=== PATIENT | male | born 1945 | race Caucasian/White ===

== ENCOUNTER 2021-04-30 12:56 | Inpatient (IN) | payer OTHER ==
[2021-04-30] MEDS ORDERED: ACETAMINOPHEN 1000 MG/100 ML VIAL (NON FORMULARY) IVPB ONE ×3 (13:37→21:20)
[2021-04-30 14:27] VITALS: BMI 27.9
[2021-04-30] MEDS ORDERED: ACETAMINOPHEN INJECTION 100 ML IVPB ONE (14:52)
[2021-04-30 15:30] LABS: VENOUS BASE EXCESS -1.4 mmol/L (-2-2); VENOUS O2 SATURATION 82.1 % (70-80); VENOUS PCO2 33.5 mmHg (38-52); VENOUS PH 7.433 (7.310-7.410)
[2021-04-30 15:43] LABS: BASO % 0.8 % (0-2.0); EOS % 0.1 % (0-4.5); HEMATOCRIT 44.8 % (35.4-49); HEMOGLOBIN 15.6 GM/dL (11.7-16.9); MCH 31.4 pg (25.7-33.7); MCHC 34.9 g/dl (32.0-35.9); MEAN PLT VOLUME 9.4 fl (7.5-11.1); MONO % 8.4 % (3.8-10.2); NEUT % 79.7 % (42.8-82.8); PLATELET COUNT 123 10^3/uL (134-434); RBC 4.98 M/mm3 (4.00-5.60); RDW 14.1 % (11.9-15.9); WHITE BLOOD COUNT 5.5 K/mm3 (4.0-10.0)
[2021-04-30 15:48] LABS: INR 1.13 (0.83-1.09); PROTHROMBIN TIME (PATIENT) 13.7 SEC (9.7-13.0)
[2021-04-30 15:50] LABS: CALCIUM 8.6 mg/dL (8.5-10.1)
[2021-04-30 15:51] LABS: ACTIVATED PTT 33.5 SECONDS (25.2-36.5); ALBUMIN 3.4 g/dl (3.4-5.0); BLOOD UREA NITROGEN 17.8 mg/dL (7-18)
[2021-04-30 15:52] LABS: MAGNESIUM 1.5 mg/dL (1.8-2.4)
[2021-04-30 15:54] LABS: CREATININE 0.8 mg/dL (0.55-1.3)
[2021-04-30 15:55] LABS: PHOSPHOROUS 3.9 mg/dL (2.5-4.9)
[2021-04-30 15:56] LABS: TOT PROT 6.5 g/dl (6.4-8.2)
[2021-04-30 16:10] LABS: LACTIC ACID 3.4 mmol/L (0.4-2.0)
[2021-04-30 16:13] LABS: PH,URINE 6.5 (5.0-8.0); URINE APPEARANCE CLEAR; URINE BILIRUBIN NEGATIVE (NEGATIVE); URINE COLOR DK YELLOW; URINE GLUCOSE (UA) 2+ (NEGATIVE); URINE KETONE 1+ (NEGATIVE); URINE LEUK ESTERASE NEGATIVE (NEGATIVE); URINE NITRITE NEGATIVE (NEGATIVE); URINE PROTEIN TRACE (NEGATIVE)
[2021-04-30] MEDS ORDERED: MAGNESIUM SULF 50% (8.12 MEQ/2 ML-1 GM VIAL) IVPB ONE (16:45)
[2021-04-30] MEDS ORDERED: SODIUM CHLORIDE 0.9% 500 ML INFUS.BAG IV ONE (16:45)
[2021-04-30] MEDS ORDERED: MAGNESIUM 1GM/D5W - 1 GM/100 ML IVPB IVPB ONE (17:24)
[2021-04-30] MEDS ORDERED: ACETAMINOPHEN 325 MG TABLET (FP) PO PRN (19:41)
[2021-04-30] MEDS ORDERED: POLYETHYLENE GLYCOL (HEALTHYLAX) 3350 17 GM PACKET PO PRN (19:41)
[2021-04-30 21:09] LABS: LACTIC ACID 9.6 mmol/L (0.4-2.0)
[2021-04-30] MEDS ORDERED: SODIUM CHLORIDE 1,000 ML IV STA (21:20)
[2021-04-30] MEDS ORDERED: VANCOMYCIN 1 GM in D5W (PRE-DOCKED) 1,000 MG/250 ML IVPB ONE (21:44)
[2021-04-30] MEDS ORDERED: PIPERACILLIN/TAZOB 4.5 GM 4.5 GM in DEXTROSE 5%-WATER 100 ML IVPB ONE (21:44)
[2021-04-30] MEDS ORDERED: LACTATED RINGERS SOLUTION 1000 ML INFUS.BAG IV ONE (21:45)
[2021-04-30] MEDS ORDERED: PIPERACILLIN/TAZOB 4.5 GM 4.5 GM/100 ML BAG IVPB ONE (23:33)
[2021-05-01] MEDS ORDERED: VANCOMYCIN 1 GRAM (PRE-DOCKED) 1,000 MG/250 ML BAG IVPB ONE (00:03)
[2021-05-01 01:49] LABS: LACTIC ACID 3.3 mmol/L (0.4-2.0)
[2021-05-01] MEDS ORDERED: IBUPROFEN 800 MG/8 ML IJ IVPB ONE ×2 (01:54→01:56)
[2021-05-01] MEDS ORDERED: ACETAMINOPHEN 1000 MG/100 ML VIAL (NON FORMULARY) IVPB ONE (01:56)
[2021-05-01] MEDS ORDERED: ACETAMINOPHEN INJECTION 100 ML IVPB ONE (02:09)
[2021-05-01] MEDS ORDERED: MAGNESIUM SULFATE IN WATER 2 GM/50 ML IVPB IVPB ONE ×3 (03:05→15:42)
[2021-05-01] MEDS: MAGNESIUM SULFATE IN WATER 2 GM/50 ML IVPB IVPB ONE ×2 (03:25→05:11)
[2021-05-01 04:19] LABS: HEMATOCRIT 39.1 % (35.4-49); MCHC 34.9 g/dl (32.0-35.9)
[2021-05-01 04:21] LABS: INR 1.23 (0.83-1.09); PROTHROMBIN TIME (PATIENT) 14.9 SEC (9.7-13.0)
[2021-05-01 04:24] LABS: HEMOGLOBIN 13.7 GM/dL (11.7-16.9); MCH 31.4 pg (25.7-33.7); MEAN CELL VOLUME 90.1 fl (80-96); MEAN PLT VOLUME 8.8 fl (7.5-11.1); PLATELET COUNT 94 10^3/uL (134-434); RBC 4.34 M/mm3 (4.00-5.60); RDW 13.7 % (11.9-15.9); WHITE BLOOD COUNT 4.2 K/mm3 (4.0-10.0)
[2021-05-01 04:30] LABS: CALCIUM 7.4 mg/dL (8.5-10.1)
[2021-05-01 04:31] LABS: ALBUMIN 2.8 g/dl (3.4-5.0); BLOOD UREA NITROGEN 15.7 mg/dL (7-18); MAGNESIUM 1.4 mg/dL (1.8-2.4)
[2021-05-01 04:34] LABS: CREATININE 0.8 mg/dL (0.55-1.3)
[2021-05-01 04:36] LABS: BILIRUBIN,TOTAL 1.2 mg/dL (0.2-1); TOT PROT 5.4 g/dl (6.4-8.2)
[2021-05-01 05:11] LABS: LACTIC ACID 2.7 mmol/L (0.4-2.0)
[2021-05-01] MEDS ORDERED: PIPERACILLIN/TAZOB 3.375 GM 3.375 GM/50 ML BAG IVPB ONE ×3 (05:13→15:42)
[2021-05-01] MEDS: PIPERACILLIN/TAZOB 3.375 GM 3.375 GM in DEXTROSE 5%-WATER - 50 ML IVPB SCH ×4 (05:21→21:30)
[2021-05-01] MEDS ORDERED: MAGNESIUM 1GM/D5W - 1 GM/100 ML IVPB IVPB ONE (05:50)
[2021-05-01] MEDS ORDERED: KCL 10 MEQ IVPB 10 MEQ/100 ML INFUS.BAG IVPB ONE (06:45)
[2021-05-01 07:52] LABS: ANISOCYTOSIS 0; HELMET CELLS 0; HOWELL-JOLLY BODIES 0; MACROCYTOSIS 0; OVALOCYTE 0; PLATELET ESTIMATE DECREASED; ROULEAU 0; SICKELED CELLS 0; TARGET CELLS 0; TEAR DROP CELLS 0; TOXIC GRANULATION 0
[2021-05-01] MEDS: KCL 10 MEQ IVPB 10 MEQ/100 ML INFUS.BAG IVPB SCH ×2 (10:00→10:08)
[2021-05-01] MEDS ORDERED: INSULIN SLIDING SCALE (NOVOLOG) 1 VIAL SQ ONE (10:10)
[2021-05-01] MEDS: INSULIN SLIDING SCALE (NOVOLOG) 1 VIAL SQ SCH ×3 (10:13→22:35)
[2021-05-01] MEDS ORDERED: ENOXAPARIN NA (PORCINE) 40 MG/0.4 ML DISP.SYRIN SQ ONE (10:42)
[2021-05-01] MEDS ORDERED: DIVALPROEX SODIUM 500 MG TABLET E.C. ONE (10:42)
[2021-05-01] MEDS ORDERED: ASPIRIN 81 MG CHEWABLE TABLETS ONE (10:42)
[2021-05-01] MEDS: ENOXAPARIN NA (PORCINE) 40 MG/0.4 ML DISP.SYRIN SQ SCH (10:46)
[2021-05-01] MEDS: DIVALPROEX NA *ER* EXTEND REL 500 MG TABLET.SA (FP) PO SCH ×2 (10:46→22:00)
[2021-05-01] MEDS: ASPIRIN 81 MG CHEWABLE TABLETS PO SCH (10:46)
[2021-05-01] MEDS ORDERED: VANCOMYCIN/WATER BAGS 1,250 MG/250 ML BAG IVPB SCH (11:00)
[2021-05-01] MEDS ORDERED: VANCOMYCIN/WATER 1,250 MG/250 ML BAG IVPB SCH (11:00)
[2021-05-01] MEDS ORDERED: MAGNESIUM SULF 50% (8.12 MEQ/2 ML-1 GM VIAL) IVPB ONE (14:56)
[2021-05-01] MEDS ORDERED: PT OWN MED DRAWER 7, Y5N ONE (21:03)
[2021-05-01] MEDS ORDERED: PIPERACILLIN/TAZOBACTAM 3.375 GM VIAL IVPB ONE (21:04)
[2021-05-01] MEDS ORDERED: DEXTROSE 5%-WATER - 50 ML IVPB ONE (21:04)
[2021-05-01] MEDS ORDERED: ATORVASTATIN CA 40 MG TABLET (FP) PO SCH (22:00)
[2021-05-01] MEDS: CROMOLYN SODIUM 4% OPHTH DROPS 10 ML BOTTLE OU SCH (22:00)
[2021-05-01] MEDS: risperiDONE 0.5 MG TABLET PO SCH (22:35)
[2021-05-01] MEDS: DONEPEZIL HCL 5 MG TABLET (FP) PO SCH (22:40)
[2021-05-02] MEDS: CROMOLYN SODIUM 4% OPHTH DROPS 10 ML BOTTLE OU SCH ×2 (01:38→21:38)
[2021-05-02] MEDS ORDERED: DEXTROSE 5%-WATER - 50 ML IVPB ONE ×3 (01:39→15:35)
[2021-05-02] MEDS ORDERED: PIPERACILLIN/TAZOBACTAM 3.375 GM VIAL IVPB ONE ×4 (01:39→20:31)
[2021-05-02] MEDS: PIPERACILLIN/TAZOB 3.375 GM 3.375 GM in DEXTROSE 5%-WATER - 50 ML IVPB SCH ×4 (02:16→21:37)
[2021-05-02] MEDS ORDERED: PT OWN MED DRAWER 7, Y5N ONE ×3 (02:38→20:30)
[2021-05-02] MEDS ORDERED: guaiFENesin/D-METHORPHAN HB 10 ML UNIT-DOSE CUPS PO PRN (06:02)
[2021-05-02] MEDS: INSULIN SLIDING SCALE (NOVOLOG) 1 VIAL SQ SCH ×5 (06:44→21:36)
[2021-05-02 07:23] LABS: BASO % 1.1 % (0-2.0); EOS % 2.4 % (0-4.5); HEMATOCRIT 37.4 % (35.4-49); HEMOGLOBIN 13.3 GM/dL (11.7-16.9); LYMPH % 28.6 % (8-40); MCH 31.8 pg (25.7-33.7); MCHC 35.5 g/dl (32.0-35.9); MEAN CELL VOLUME 89.5 fl (80-96); MEAN PLT VOLUME 9.5 fl (7.5-11.1); MONO % 23.5 % (3.8-10.2); NEUT % 44.4 % (42.8-82.8); PLATELET COUNT 103 10^3/uL (134-434); RBC 4.18 M/mm3 (4.00-5.60); RDW 14.1 % (11.9-15.9)
[2021-05-02 07:46] LABS: ALBUMIN 2.7 g/dl (3.4-5.0); MAGNESIUM 1.9 mg/dL (1.8-2.4)
[2021-05-02 07:49] LABS: BLOOD UREA NITROGEN 10.3 mg/dL (7-18); CALCIUM 7.3 mg/dL (8.5-10.1); CREATININE 0.6 mg/dL (0.55-1.3)
[2021-05-02 07:50] LABS: TOT PROT 5.4 g/dl (6.4-8.2)
[2021-05-02 07:52] LABS: BILIRUBIN,TOTAL 1.1 mg/dL (0.2-1)
[2021-05-02 10:10] LABS: ANISOCYTOSIS 0; HELMET CELLS 0; HOWELL-JOLLY BODIES 0; MACROCYTOSIS 0; OVALOCYTE 0; PLATELET ESTIMATE DECREASED; ROULEAU 0; SICKELED CELLS 0; TARGET CELLS 0; TEAR DROP CELLS 0; TOXIC GRANULATION 0
[2021-05-02] MEDS ORDERED: POTASSIUM CHLORIDE TABS 10 MEQ TABLET.ER (FP) PO ONE (10:15)
[2021-05-02] MEDS: ASPIRIN 81 MG CHEWABLE TABLETS PO SCH (10:49)
[2021-05-02] MEDS: ENOXAPARIN NA (PORCINE) 40 MG/0.4 ML DISP.SYRIN SQ SCH (10:49)
[2021-05-02] MEDS: DIVALPROEX NA *ER* EXTEND REL 500 MG TABLET.SA (FP) PO SCH ×2 (10:51→21:38)
[2021-05-02 11:46] LABS: LACTIC ACID 3.2 mmol/L (0.4-2.0)
[2021-05-02] MEDS: DONEPEZIL HCL 5 MG TABLET (FP) PO SCH (21:38)
[2021-05-02] MEDS: risperiDONE 0.5 MG TABLET PO SCH (21:38)
[2021-05-03] MEDS ORDERED: PIPERACILLIN/TAZOBACTAM 3.375 GM VIAL IVPB ONE ×3 (01:32→14:23)
[2021-05-03] MEDS ORDERED: DEXTROSE 5%-WATER - 50 ML IVPB ONE ×3 (01:32→14:24)
[2021-05-03] MEDS: PIPERACILLIN/TAZOB 3.375 GM 3.375 GM in DEXTROSE 5%-WATER - 50 ML IVPB SCH ×3 (03:11→14:53)
[2021-05-03 07:06] LABS: BASO % 0.7 % (0-2.0); EOS % 3.8 % (0-4.5); HEMATOCRIT 38.3 % (35.4-49); HEMOGLOBIN 13.6 GM/dL (11.7-16.9); MCH 31.9 pg (25.7-33.7); MCHC 35.4 g/dl (32.0-35.9); MEAN CELL VOLUME 90.3 fl (80-96); MEAN PLT VOLUME 9.5 fl (7.5-11.1); MONO % 16.9 % (3.8-10.2); NEUT % 38.6 % (42.8-82.8); PLATELET COUNT 122 10^3/uL (134-434); RBC 4.24 M/mm3 (4.00-5.60); RDW 13.9 % (11.9-15.9); WHITE BLOOD COUNT 3.9 K/mm3 (4.0-10.0)
[2021-05-03 07:20] LABS: CALCIUM 7.9 mg/dL (8.5-10.1)
[2021-05-03 07:21] LABS: ALBUMIN 2.7 g/dl (3.4-5.0); BLOOD UREA NITROGEN 9.2 mg/dL (7-18)
[2021-05-03 07:24] LABS: CREATININE 0.7 mg/dL (0.55-1.3)
[2021-05-03 07:25] LABS: BILIRUBIN,TOTAL 0.9 mg/dL (0.2-1)
[2021-05-03] MEDS ORDERED: POTASSIUM CHLORIDE TABS 20 MEQ TABLET.ER (FP) PO ONE (07:26)
[2021-05-03 07:27] LABS: TOT PROT 5.5 g/dl (6.4-8.2)
[2021-05-03] MEDS: INSULIN SLIDING SCALE (NOVOLOG) 1 VIAL SQ SCH ×4 (09:25→21:14)
[2021-05-03] MEDS: DIVALPROEX NA *ER* EXTEND REL 500 MG TABLET.SA (FP) PO SCH ×2 (09:26→21:13)
[2021-05-03] MEDS: ASPIRIN 81 MG CHEWABLE TABLETS PO SCH (09:26)
[2021-05-03] MEDS: ENOXAPARIN NA (PORCINE) 40 MG/0.4 ML DISP.SYRIN SQ SCH (09:27)
[2021-05-03 10:31] LABS: LACTIC ACID 2.2 mmol/L (0.4-2.0)
[2021-05-03] MEDS: DONEPEZIL HCL 5 MG TABLET (FP) PO SCH (21:13)
[2021-05-03] MEDS: risperiDONE 0.5 MG TABLET PO SCH (21:13)
[2021-05-03] MEDS ORDERED: CROMOLYN SODIUM 4% OPHTH DROPS 10 ML BOTTLE OU SCH (22:00)
[2021-05-04] MEDS: INSULIN SLIDING SCALE (NOVOLOG) 1 VIAL SQ SCH ×4 (06:02→21:53)
[2021-05-04] MEDS ORDERED: PT OWN MED DRAWER 7, Y5N ONE (09:03)
[2021-05-04] MEDS: ASPIRIN 81 MG CHEWABLE TABLETS PO SCH (09:39)
[2021-05-04] MEDS: ENOXAPARIN NA (PORCINE) 40 MG/0.4 ML DISP.SYRIN SQ SCH (09:39)
[2021-05-04] MEDS: DIVALPROEX NA *ER* EXTEND REL 500 MG TABLET.SA (FP) PO SCH ×2 (09:39→21:53)
[2021-05-04 11:08] LABS: BASO % 0.6 % (0-2.0); EOS % 2.9 % (0-4.5); HEMOGLOBIN 13.8 GM/dL (11.7-16.9); LYMPH % 36.7 % (8-40); MCH 31.8 pg (25.7-33.7); MCHC 35.3 g/dl (32.0-35.9); MEAN CELL VOLUME 90.1 fl (80-96); MEAN PLT VOLUME 8.9 fl (7.5-11.1); NEUT % 47.8 % (42.8-82.8); PLATELET COUNT 147 10^3/uL (134-434); RBC 4.33 M/mm3 (4.00-5.60); WHITE BLOOD COUNT 5.2 K/mm3 (4.0-10.0)
[2021-05-04 11:29] LABS: CALCIUM 8.5 mg/dL (8.5-10.1)
[2021-05-04 11:30] LABS: BLOOD UREA NITROGEN 11.6 mg/dL (7-18); MAGNESIUM 1.8 mg/dL (1.8-2.4)
[2021-05-04 11:33] LABS: CREATININE 0.7 mg/dL (0.55-1.3)
[2021-05-04 11:38] LABS: LACTIC ACID 2.1 mmol/L (0.4-2.0)
[2021-05-04] MEDS ORDERED: POTASSIUM CHLORIDE TABS 10 MEQ TABLET.ER (FP) PO ONE (15:10)
[2021-05-04] MEDS: risperiDONE 0.5 MG TABLET PO SCH (21:52)
[2021-05-04] MEDS: DONEPEZIL HCL 5 MG TABLET (FP) PO SCH (21:52)
[2021-05-05] MEDS: INSULIN SLIDING SCALE (NOVOLOG) 1 VIAL SQ SCH ×2 (06:00→11:43)
[2021-05-05] MEDS ORDERED: PT OWN MED DRAWER 7, Y5N ONE (08:20)
[2021-05-05] MEDS: ASPIRIN 81 MG CHEWABLE TABLETS PO SCH (09:02)
[2021-05-05] MEDS: ENOXAPARIN NA (PORCINE) 40 MG/0.4 ML DISP.SYRIN SQ SCH (09:03)
[2021-05-05] MEDS: DIVALPROEX NA *ER* EXTEND REL 500 MG TABLET.SA (FP) PO SCH (09:03)
[2021-05-05 09:11] VITALS: BP 118/67; PULSE 71; TEMP 98.1
[2021-05-05] MEDS ORDERED: POTASSIUM CHLORIDE TABS 10 MEQ TABLET.ER (FP) PO SCH (10:00)
== END 2021-05-05 13:22 | DRG 864 ==
LOC: JER 12:56 → JERBED 17:22 → J4W 05-01 16:43
PROVIDERS: ADMIT Internal Medicine; ATTEND Family Medicine
DX: R50.83 Postvaccination fever (principal); E87.2 Acidosis; T50.B95A Adverse effect of other viral vaccines, initial encounter; I25.10 Atherosclerotic heart disease of native coronary artery without angina pectoris; E11.9 Type 2 diabetes mellitus without complications; E78.5 Hyperlipidemia, unspecified; F03.90 Unspecified dementia, unspecified severity, without behavioral disturbance, psychotic disturbance, mood disturbance, and anxiety; F39 Unspecified mood [affective] disorder; Z79.84 Long term (current) use of oral hypoglycemic drugs; Z79.4 Long term (current) use of insulin; R53.1 Weakness; E83.42 Hypomagnesemia; R94.5 Abnormal results of liver function studies
CPT/HCPCS: 36415; 70450-TC; 71045-TC-FY; 71250-TC; 74177-TC; 76705-TC; 80048; 80053; 81003; 82550; 82553; 82803; 82962; 83605; 83735; 84100; 84484; 85025; 85610; 85730; 87040; 87086; 87804; 87807; 87899; 93005; 93010; 99285-25; C9803; J0131; Q9967; U0003; U0005

== ENCOUNTER 2022-04-07 20:02 | Observation (INO) | payer OTHER ==
[2022-04-07] MEDS ORDERED: SODIUM CHLORIDE 1,000 ML IV SCH ×2 (20:15→21:30)
[2022-04-07 22:34] LABS: BASO % 1.1 % (0-2.0); EOS % 1.3 % (0-4.5); HEMATOCRIT 42.9 % (35.4-49); LYMPH % 34.7 % (8-40); MCH 31.7 pg (25.7-33.7); MCHC 34.9 g/dl (32.0-35.9); MEAN CELL VOLUME 90.8 fl (80-96); MEAN PLT VOLUME 9.5 fl (7.5-11.1); MONO % 12.6 % (3.8-10.2); NEUT % 50.3 % (42.8-82.8); PLATELET COUNT 148 10^3/uL (134-434); RBC 4.72 M/mm3 (4.00-5.60); RDW 13.3 % (11.9-15.9); WHITE BLOOD COUNT 6.6 K/mm3 (4.0-10.0)
[2022-04-07 22:41] LABS: INR 1.07 (0.83-1.09); PROTHROMBIN TIME (PATIENT) 12.3 SEC (9.7-13.0)
[2022-04-07 22:44] LABS: ACTIVATED PTT 33.9 SECONDS (25.2-36.5)
[2022-04-07 22:54] LABS: CALCIUM 9.3 mg/dL (8.5-10.1)
[2022-04-07 22:56] LABS: ALBUMIN 3.5 g/dl (3.4-5.0)
[2022-04-07 22:59] LABS: CREATININE 0.7 mg/dL (0.55-1.3)
[2022-04-07 23:00] LABS: TOT PROT 6.5 g/dl (6.4-8.2)
[2022-04-07 23:01] LABS: BILIRUBIN,TOTAL 0.6 mg/dL (0.2-1)
[2022-04-08] MEDS ORDERED: ACETAMINOPHEN 325 MG TABLET (FP) PO PRN (03:21)
[2022-04-08] MEDS ORDERED: POLYETHYLENE GLYCOL (HEALTHYLAX) 3350 17 GM PACKET PO PRN (04:59)
[2022-04-08] MEDS ORDERED: CARBIDOPA/LEVODOPA 25/100 TABLET (FP) ONE (06:25)
[2022-04-08] MEDS: ARTIFICIAL TEARS (POLYVINYL ALCOHOL) OPTH DROPS OU SCH ×3 (06:25→23:38)
[2022-04-08] MEDS: INSULIN SLIDING SCALE (NOVOLOG) 1 VIAL SQ SCH ×4 (06:34→23:36)
[2022-04-08 06:58] LABS: CALCIUM 8.7 mg/dL (8.5-10.1); HEMATOCRIT 42.1 % (35.4-49); HEMOGLOBIN 14.4 GM/dL (11.7-16.9); MCH 30.9 pg (25.7-33.7); MCHC 34.1 g/dl (32.0-35.9); MEAN CELL VOLUME 90.5 fl (80-96); MEAN PLT VOLUME 9.8 fl (7.5-11.1); PLATELET COUNT 150 10^3/uL (134-434); RBC 4.65 M/mm3 (4.00-5.60); RDW 13.3 % (11.9-15.9); WHITE BLOOD COUNT 6.9 K/mm3 (4.0-10.0)
[2022-04-08 06:59] LABS: BLOOD UREA NITROGEN 16.2 mg/dL (7-18)
[2022-04-08 07:02] LABS: CREATININE 0.6 mg/dL (0.55-1.3)
[2022-04-08 08:13] VITALS: BMI 22.7
[2022-04-08] MEDS: ASPIRIN COATED 81 MG TABLET.EC PO SCH (09:15)
[2022-04-08] MEDS: ENOXAPARIN NA (PORCINE) 40 MG/0.4 ML DISP.SYRIN SQ SCH (09:15)
[2022-04-08] MEDS: DIVALPROEX NA *ER* EXTEND REL 500 MG TABLET.SA (FP) PO SCH ×2 (11:27→23:35)
[2022-04-08 11:59] LABS: ANISOCYTOSIS 0; HELMET CELLS 0; HOWELL-JOLLY BODIES 0; MACROCYTOSIS 0; OVALOCYTE 0; ROULEAU 0; SICKELED CELLS 0; TARGET CELLS 0; TEAR DROP CELLS 0; TOXIC GRANULATION 0
[2022-04-08] MEDS: ZINC OXIDE 20% TOPICAL OINTMENT 30 GM TUBE TP SCH ×2 (12:33→23:37)
[2022-04-08] MEDS: CROMOLYN SODIUM 4% OPHTH DROPS 10 ML BOTTLE OU SCH (23:30)
[2022-04-08] MEDS: risperiDONE 0.5 MG TABLET PO SCH (23:35)
[2022-04-08] MEDS: ATORVASTATIN CA 40 MG TABLET (FP) PO SCH (23:36)
[2022-04-09] MEDS: ARTIFICIAL TEARS (POLYVINYL ALCOHOL) OPTH DROPS OU SCH ×3 (06:33→21:03)
[2022-04-09] MEDS: INSULIN SLIDING SCALE (NOVOLOG) 1 VIAL SQ SCH ×4 (06:37→21:00)
[2022-04-09] MEDS: DIVALPROEX NA *ER* EXTEND REL 500 MG TABLET.SA (FP) PO SCH ×2 (09:17→21:03)
[2022-04-09] MEDS: ASPIRIN COATED 81 MG TABLET.EC PO SCH (09:17)
[2022-04-09] MEDS: ENOXAPARIN NA (PORCINE) 40 MG/0.4 ML DISP.SYRIN SQ SCH ×2 (09:18→09:31)
[2022-04-09] MEDS: ZINC OXIDE 20% TOPICAL OINTMENT 30 GM TUBE TP SCH ×2 (09:20→21:04)
[2022-04-09] MEDS ORDERED: ERYTHROMYCIN 0.5% OPHTHALMIC OINTMENT 3.5 GM TUBE OD SCH (10:00)
[2022-04-09 10:31] LABS: BASO % 0.5 % (0-2.0); HEMATOCRIT 42.4 % (35.4-49); HEMOGLOBIN 14.5 GM/dL (11.7-16.9); LYMPH % 34.5 % (8-40); MCH 31.3 pg (25.7-33.7); MCHC 34.2 g/dl (32.0-35.9); MEAN CELL VOLUME 91.5 fl (80-96); MEAN PLT VOLUME 10.1 fl (7.5-11.1); MONO % 11.1 % (3.8-10.2); NEUT % 52.9 % (42.8-82.8); PLATELET COUNT 139 10^3/uL (134-434); RBC 4.63 M/mm3 (4.00-5.60); RDW 13.3 % (11.9-15.9); WHITE BLOOD COUNT 5.8 K/mm3 (4.0-10.0)
[2022-04-09 10:38] LABS: CALCIUM 8.3 mg/dL (8.5-10.1)
[2022-04-09 10:39] LABS: ALBUMIN 3.3 g/dl (3.4-5.0); BLOOD UREA NITROGEN 20.4 mg/dL (7-18)
[2022-04-09 10:42] LABS: BILIRUBIN,TOTAL 0.6 mg/dL (0.2-1); CREATININE 0.7 mg/dL (0.55-1.3)
[2022-04-09] MEDS: ERYTHROMYCIN 0.5% OPHTHALMIC OINTMENT 3.5 GM TUBE OS SCH (11:30)
[2022-04-09] MEDS: risperiDONE 0.5 MG TABLET PO SCH (21:03)
[2022-04-09] MEDS: ATORVASTATIN CA 40 MG TABLET (FP) PO SCH (21:03)
[2022-04-09] MEDS ORDERED: NAPHAZOLINE/PHENIRAMINE OPHTHALMIC 15 ML BOTTLE OU SCH (22:49)
[2022-04-09] MEDS: CROMOLYN SODIUM 4% OPHTH DROPS 10 ML BOTTLE OU SCH (23:01)
[2022-04-10] MEDS: ARTIFICIAL TEARS (POLYVINYL ALCOHOL) OPTH DROPS OU SCH (05:00)
[2022-04-10] MEDS: INSULIN SLIDING SCALE (NOVOLOG) 1 VIAL SQ SCH ×2 (06:04→11:57)
[2022-04-10] MEDS: ENOXAPARIN NA (PORCINE) 40 MG/0.4 ML DISP.SYRIN SQ SCH (09:28)
[2022-04-10] MEDS: ERYTHROMYCIN 0.5% OPHTHALMIC OINTMENT 3.5 GM TUBE OS SCH (09:28)
[2022-04-10] MEDS: ASPIRIN COATED 81 MG TABLET.EC PO SCH (09:28)
[2022-04-10] MEDS: ZINC OXIDE 20% TOPICAL OINTMENT 30 GM TUBE TP SCH (09:29)
[2022-04-10] MEDS: DIVALPROEX NA *ER* EXTEND REL 500 MG TABLET.SA (FP) PO SCH (09:31)
[2022-04-10 12:21] VITALS: BP 100/61; PULSE 73; TEMP 98.2
[2022-04-10 12:22] VITALS: RESP 18
== END 2022-04-10 02:30 ==
LOC: JER 20:02 → JERBED 23:30 → J5S 04-08 07:40
PROVIDERS: ADMIT Internal Medicine; ATTEND Family Medicine
PROC: 3E023GC Introduction of Other Therapeutic Substance into Muscle, Percutaneous Approach (ICD-10-PCS; principal; 2022-04-07)
PROC: 3E013VG Introduction of Insulin into Subcutaneous Tissue, Percutaneous Approach (ICD-10-PCS; 2022-04-07)
DX: H49.02 Third [oculomotor] nerve palsy, left eye (principal); F31.9 Bipolar disorder, unspecified; I25.10 Atherosclerotic heart disease of native coronary artery without angina pectoris; E11.40 Type 2 diabetes mellitus with diabetic neuropathy, unspecified; E78.5 Hyperlipidemia, unspecified; F39 Unspecified mood [affective] disorder; F03.90 Unspecified dementia, unspecified severity, without behavioral disturbance, psychotic disturbance, mood disturbance, and anxiety; I72.9 Aneurysm of unspecified site
CPT/HCPCS: 36415; 70450-TC; 70496-TC; 71250-TC; 80048; 80053; 82962; 83036; 84443; 85025; 85027; 85610; 85730; 86618; 86850; 86900; 86901; 93005; 93010; 96372; 99285-25; C9803-CS; G0378; Q9967; U0003; U0005

== ENCOUNTER 2022-12-12 12:57 | Inpatient (IN) | payer OTHER ==
[2022-12-12] MEDS ORDERED: PIPERACILLIN/TAZOB 4.5 GM 4.5 GM in DEXTROSE 5%-WATER 100 ML IVPB ONE (13:32)
[2022-12-12] MEDS ORDERED: SODIUM CHLORIDE 0.9% 1000 ML INFUS.BAG IV ONE ×2 (13:32→15:13)
[2022-12-12] MEDS ORDERED: ACETAMINOPHEN 1000 MG/100 ML BAG IVPB ONE ×3 (13:32→21:20)
[2022-12-12] MEDS ORDERED: VANCOMYCIN 1 GM in D5W (PRE-DOCKED) 1,000 MG/250 ML (RESTRICTED TO ID ONLY IVPB ONE (13:33)
[2022-12-12] MEDS ORDERED: VANCOMYCIN/WATER FOR INJ (PEG) 1,000 MG/200 ML BAG IVPB ONE (13:55)
[2022-12-12] MEDS ORDERED: PIPERACILLIN/TAZOB 4.5 GM 4.5 GM/100 ML BAG IVPB ONE (13:55)
[2022-12-12] MEDS ORDERED: ACETAMINOPHEN INJECTION 100 ML IVPB ONE ×2 (13:55→19:32)
[2022-12-12 14:29] LABS: BASO % 0.4 % (0-2.0); HEMATOCRIT 42.7 % (35.4-49); HEMOGLOBIN 14.9 GM/dL (11.7-16.9); LYMPH % 5.6 % (8-40); MCH 31.4 pg (25.7-33.7); MCHC 34.9 g/dl (32.0-35.9); MEAN CELL VOLUME 90.2 fl (80-96); MEAN PLT VOLUME 10.1 fl (7.5-11.1); PLATELET COUNT 122 10^3/uL (134-434); RBC 4.73 M/mm3 (4.00-5.60); RDW 13.9 % (11.9-15.9); WHITE BLOOD COUNT 10.2 K/mm3 (4.0-10.0)
[2022-12-12 14:30] LABS: VENOUS BASE EXCESS -4.6 mmol/L (-2-2); VENOUS O2 SATURATION 89.3 % (70-80); VENOUS PCO2 30.7 mmHg (38-52); VENOUS PH 7.404 (7.310-7.410)
[2022-12-12 14:33] LABS: INR 1.27 (0.83-1.09); PROTHROMBIN TIME (PATIENT) 14.7 SEC (9.7-13.0)
[2022-12-12 14:36] LABS: ACTIVATED PTT 36.6 SECONDS (25.2-36.5)
[2022-12-12 14:49] LABS: POTASSIUM 3.6 mmol/L (3.5-5.1)
[2022-12-12 14:52] LABS: ALBUMIN 3.3 g/dl (3.4-5.0); BLOOD UREA NITROGEN 21.5 mg/dL (7-18); CALCIUM 8.6 mg/dL (8.5-10.1)
[2022-12-12 14:54] LABS: CREATININE 1.1 mg/dL (0.55-1.3)
[2022-12-12 14:56] LABS: BILIRUBIN,TOTAL 0.8 mg/dL (0.2-1); TOT PROT 6.1 g/dl (6.4-8.2)
[2022-12-12 15:00] LABS: LACTIC ACID 9.1 mmol/L (0.4-2.0)
[2022-12-12] MEDS ORDERED: SODIUM CHLORIDE 0.9% 500 ML INFUS.BAG IV ONE (17:31)
[2022-12-12 17:45] LABS: LACTIC ACID 7.1 mmol/L (0.4-2.0)
[2022-12-12] MEDS ORDERED: LACTATED RINGERS SOLUTION 1,000 ML/1,000 ML INFUS.BAG IV SCH (18:00)
[2022-12-12] MEDS ORDERED: ALBUTEROL SO4 2.5/IPRATROPIUM 0.5 INH SOL 3 ML VIAL.NEB. NEB ONE ×2 (19:04→19:56)
[2022-12-12] MEDS ORDERED: FUROSEMIDE 40 MG/4 ML INJECTABLE VIAL IVPUSH ONE (19:12)
[2022-12-12] MEDS ORDERED: FUROSEMIDE 40 MG/4 ML INJECTABLE VIAL ONE (19:12)
[2022-12-12] MEDS ORDERED: DEXAMETHASONE SOD PHOSPHATE 10 MG/1 ML VIAL ONE (19:43)
[2022-12-12] MEDS ORDERED: DEXAMETHASONE SOD PHOSPHATE 10 MG/1 ML VIAL IVPUSH ONE (19:44)
[2022-12-12] MEDS: ALBUTEROL SO4 2.5/IPRATROPIUM 0.5 INH SOL 3 ML VIAL.NEB. NEB SCH ×4 (19:45→20:30)
[2022-12-12] MEDS: DEXAMETHASONE SOD PHOSPHATE 10 MG/1 ML VIAL IM ONE ×2 (19:52→19:55)
[2022-12-12] MEDS ORDERED: TRIMETHOBENZAMIDE HCL 200MG/2ML INJ IM ONE ×2 (20:00→20:03)
[2022-12-12 20:05] LABS: PH,URINE 5.5 (5.0-8.0); URINE APPEARANCE CLEAR; URINE BILIRUBIN NEGATIVE (NEGATIVE); URINE COLOR YELLOW; URINE GLUCOSE (UA) 100 (NEGATIVE); URINE KETONE NEGATIVE (NEGATIVE); URINE PROTEIN NEGATIVE (NEGATIVE); URINE UROBILINOGEN 0.2 mg/dL (0.2-1.0)
[2022-12-12 20:06] LABS: URINE LEUK ESTERASE NEGATIVE (NEGATIVE); URINE NITRITE NEGATIVE (NEGATIVE)
[2022-12-12] MEDS: CHLORHEXIDINE GLUCONATE 4% CLEANSER FOR DECOLONIZATION TP SCH (22:16)
[2022-12-12] MEDS: HEPARIN NA (PORCINE) 5,000 UNITS/ML 1ML VIAL SQ SCH (22:16)
[2022-12-12] MEDS: MUPIROCIN 2% TOPICAL OINTMENT FOR DECOLONIZATION NS SCH (22:16)
[2022-12-13] MEDS: PIPERACILLIN/TAZOB 3.375 GM 3.375 GM in DEXTROSE 5%-WATER - 50 ML IVPB SCH ×3 (02:21→17:02)
[2022-12-13] MEDS: HEPARIN NA (PORCINE) 5,000 UNITS/ML 1ML VIAL SQ SCH (05:32)
[2022-12-13 07:23] LABS: BASO % 0.3 % (0-2.0); HEMATOCRIT 41.6 % (35.4-49); HEMOGLOBIN 14.6 GM/dL (11.7-16.9); LYMPH % 4.5 % (8-40); MCH 31.5 pg (25.7-33.7); MCHC 35.1 g/dl (32.0-35.9); MEAN CELL VOLUME 89.6 fl (80-96); MEAN PLT VOLUME 9.7 fl (7.5-11.1); MONO % 9.4 % (3.8-10.2); NEUT % 85.8 % (42.8-82.8); PLATELET COUNT 109 10^3/uL (134-434); RBC 4.64 M/mm3 (4.00-5.60); RDW 13.9 % (11.9-15.9); WHITE BLOOD COUNT 11.4 K/mm3 (4.0-10.0)
[2022-12-13 07:34] LABS: INR 1.32 (0.83-1.09); PROTHROMBIN TIME (PATIENT) 15.3 SEC (9.7-13.0)
[2022-12-13 07:51] LABS: LACTIC ACID 4.6 mmol/L (0.4-2.0)
[2022-12-13 07:54] LABS: POTASSIUM 3.7 mmol/L (3.5-5.1)
[2022-12-13 08:02] LABS: ALBUMIN 3.2 g/dl (3.4-5.0); BLOOD UREA NITROGEN 16.4 mg/dL (7-18); CALCIUM 8.4 mg/dL (8.5-10.1); CREATININE 0.9 mg/dL (0.55-1.3)
[2022-12-13 08:03] LABS: BILIRUBIN,TOTAL 0.9 mg/dL (0.2-1); TOT PROT 6.2 g/dl (6.4-8.2)
[2022-12-13 08:10] LABS: N-TERMINAL BNP 1887.9 pg/ml (5-450)
[2022-12-13] MEDS: SODIUM CHLORIDE 1,000 ML IV SCH (10:50)
[2022-12-13] MEDS: DEXAMETHASONE SOD PHOSPHATE 10 MG/1 ML VIAL IVPUSH SCH (10:56)
[2022-12-13] MEDS: PANTOPRAZOLE SODIUM 40 MG VIAL IVPUSH SCH (10:56)
[2022-12-13] MEDS: MUPIROCIN 2% TOPICAL OINTMENT FOR DECOLONIZATION NS SCH ×2 (11:00→21:01)
[2022-12-13] MEDS: BUDESONIDE/FORMETEROL FUMARATE 160/4.5 mcg INHALER IH SCH ×2 (11:00→21:02)
[2022-12-13] MEDS: REMDESIVIR 200 MG in SODIUM CHLORIDE 250 ML IVPB ONE ×2 (12:08→12:10)
[2022-12-13] MEDS: ENOXAPARIN NA (PORCINE) 40 MG/0.4 ML DISP.SYRIN SQ SCH (14:41)
[2022-12-13] MEDS ORDERED: INSULIN (NOVOLOG) ASPART 100 UNITS/ML 10ML VIAL ONE ×2 (16:43→20:42)
[2022-12-13] MEDS: INSULIN SLIDING SCALE (NOVOLOG) 1 VIAL SQ SCH ×2 (16:52→21:01)
[2022-12-13] MEDS: CHLORHEXIDINE GLUCONATE 4% CLEANSER FOR DECOLONIZATION TP SCH (21:01)
[2022-12-14] MEDS: SODIUM CHLORIDE 1,000 ML IV SCH ×2 (02:08→21:20)
[2022-12-14] MEDS: PIPERACILLIN/TAZOB 3.375 GM 3.375 GM in DEXTROSE 5%-WATER - 50 ML IVPB SCH ×2 (02:09→10:33)
[2022-12-14] MEDS: INSULIN SLIDING SCALE (NOVOLOG) 1 VIAL SQ SCH ×4 (06:08→21:24)
[2022-12-14 06:26] LABS: HEMATOCRIT 36.1 % (35.4-49); HEMOGLOBIN 12.9 GM/dL (11.7-16.9); MCH 31.7 pg (25.7-33.7); MCHC 35.7 g/dl (32.0-35.9); MEAN CELL VOLUME 88.9 fl (80-96); MEAN PLT VOLUME 9.8 fl (7.5-11.1); PLATELET COUNT 107 10^3/uL (134-434); RBC 4.06 M/mm3 (4.00-5.60); RDW 13.7 % (11.9-15.9); WHITE BLOOD COUNT 8.3 K/mm3 (4.0-10.0)
[2022-12-14 06:48] LABS: POTASSIUM 3.4 mmol/L (3.5-5.1)
[2022-12-14 06:53] LABS: BLOOD UREA NITROGEN 20.9 mg/dL (7-18); CALCIUM 8.3 mg/dL (8.5-10.1); MAGNESIUM 1.8 mg/dL (1.8-2.4)
[2022-12-14 06:56] LABS: CREATININE 0.8 mg/dL (0.55-1.3); PHOSPHOROUS 2.4 mg/dL (2.5-4.9)
[2022-12-14] MEDS: PANTOPRAZOLE SODIUM 40 MG VIAL IVPUSH SCH (10:33)
[2022-12-14] MEDS: DEXAMETHASONE SOD PHOSPHATE 10 MG/1 ML VIAL IVPUSH SCH (10:33)
[2022-12-14] MEDS: ENOXAPARIN NA (PORCINE) 40 MG/0.4 ML DISP.SYRIN SQ SCH (10:34)
[2022-12-14] MEDS: BUDESONIDE/FORMETEROL FUMARATE 160/4.5 mcg INHALER IH SCH ×2 (10:59→21:19)
[2022-12-14] MEDS: MUPIROCIN 2% TOPICAL OINTMENT FOR DECOLONIZATION NS SCH (11:00)
[2022-12-14] MEDS ORDERED: REMDESIVIR 100 MG in SODIUM CHLORIDE 250 ML IVPB SCH (11:00)
[2022-12-14] MEDS ORDERED: POTASSIUM PHOSPHATE 15 MM in DEXTROSE 5%-WATER - 250 ML IVPB ONE (17:00)
[2022-12-14] MEDS ORDERED: SODIUM CHLORIDE 1,000 ML IV SCH (17:08)
[2022-12-14] MEDS ORDERED: INSULIN (NOVOLOG) ASPART 100 UNITS/ML 10ML VIAL ONE ×2 (17:19→21:22)
[2022-12-14] MEDS ORDERED: CHLORHEXIDINE GLUCONATE 4% CLEANSER FOR DECOLONIZATION TP SCH (22:00)
[2022-12-14] MEDS ORDERED: MUPIROCIN 2% TOPICAL OINTMENT FOR DECOLONIZATION NS SCH (22:00)
[2022-12-15] MEDS: INSULIN SLIDING SCALE (NOVOLOG) 1 VIAL SQ SCH ×4 (07:05→22:53)
[2022-12-15 09:14] LABS: BASO % 0.6 % (0-2.0); EOS % 0.2 % (0-4.5); HEMATOCRIT 35.4 % (35.4-49); HEMOGLOBIN 12.4 GM/dL (11.7-16.9); LYMPH % 20.2 % (8-40); MCH 31.6 pg (25.7-33.7); MCHC 35.2 g/dl (32.0-35.9); MEAN CELL VOLUME 89.8 fl (80-96); MEAN PLT VOLUME 10.1 fl (7.5-11.1); MONO % 11.7 % (3.8-10.2); NEUT % 67.3 % (42.8-82.8); PLATELET COUNT 115 10^3/uL (134-434); RBC 3.94 M/mm3 (4.00-5.60); RDW 13.6 % (11.9-15.9); WHITE BLOOD COUNT 6.1 K/mm3 (4.0-10.0)
[2022-12-15] MEDS: DEXAMETHASONE SOD PHOSPHATE 10 MG/1 ML VIAL IVPUSH SCH (09:40)
[2022-12-15] MEDS: ENOXAPARIN NA (PORCINE) 40 MG/0.4 ML DISP.SYRIN SQ SCH (09:40)
[2022-12-15] MEDS: PANTOPRAZOLE SODIUM 40 MG VIAL IVPUSH SCH (09:40)
[2022-12-15 09:43] LABS: POTASSIUM 3.7 mmol/L (3.5-5.1)
[2022-12-15 09:52] LABS: BLOOD UREA NITROGEN 20.9 mg/dL (7-18)
[2022-12-15 09:54] LABS: ALBUMIN 2.7 g/dl (3.4-5.0)
[2022-12-15 09:55] LABS: CALCIUM 8.5 mg/dL (8.5-10.1)
[2022-12-15 09:58] LABS: BILIRUBIN,TOTAL 0.5 mg/dL (0.2-1)
[2022-12-15 09:59] LABS: TOT PROT 5.2 g/dl (6.4-8.2)
[2022-12-15 10:03] LABS: CREATININE 0.7 mg/dL (0.55-1.3)
[2022-12-15] MEDS: REMDESIVIR 100 MG in SODIUM CHLORIDE 250 ML IVPB SCH (11:10)
[2022-12-15] MEDS ORDERED: INSULIN (NOVOLOG) ASPART 100 UNITS/ML 10ML VIAL ONE ×2 (11:17→16:38)
[2022-12-15] MEDS: BUDESONIDE/FORMETEROL FUMARATE 160/4.5 mcg INHALER IH SCH ×2 (11:52→22:54)
[2022-12-15] MEDS ORDERED: SODIUM CHLORIDE 0.45% 1,000 ML IV SCH (16:45)
[2022-12-16] MEDS: INSULIN SLIDING SCALE (NOVOLOG) 1 VIAL SQ SCH ×4 (06:29→22:43)
[2022-12-16] MEDS: BUDESONIDE/FORMETEROL FUMARATE 160/4.5 mcg INHALER IH SCH ×2 (09:25→22:37)
[2022-12-16] MEDS: DEXAMETHASONE SOD PHOSPHATE 10 MG/1 ML VIAL IVPUSH SCH (09:25)
[2022-12-16] MEDS: PANTOPRAZOLE SODIUM 40 MG VIAL IVPUSH SCH (09:27)
[2022-12-16] MEDS: ENOXAPARIN NA (PORCINE) 40 MG/0.4 ML DISP.SYRIN SQ SCH (09:28)
[2022-12-16] MEDS: REMDESIVIR 100 MG in SODIUM CHLORIDE 250 ML IVPB SCH (10:45)
[2022-12-16] MEDS ORDERED: INSULIN (NOVOLOG) ASPART 100 UNITS/ML 10ML VIAL ONE ×3 (11:52→22:39)
[2022-12-16 22:15] VITALS: RESP 18
[2022-12-17 08:07] LABS: HEMATOCRIT 36.3 % (35.4-49); HEMOGLOBIN 12.7 GM/dL (11.7-16.9); MCH 31.4 pg (25.7-33.7); MCHC 34.9 g/dl (32.0-35.9); MEAN CELL VOLUME 89.9 fl (80-96); MEAN PLT VOLUME 10.1 fl (7.5-11.1); PLATELET COUNT 135 10^3/uL (134-434); RBC 4.04 M/mm3 (4.00-5.60); RDW 13.7 % (11.9-15.9); WHITE BLOOD COUNT 6.4 K/mm3 (4.0-10.0)
[2022-12-17 08:19] LABS: POTASSIUM 3.4 mmol/L (3.5-5.1)
[2022-12-17 08:22] LABS: ALBUMIN 2.7 g/dl (3.4-5.0); BLOOD UREA NITROGEN 19.8 mg/dL (7-18); CALCIUM 8.1 mg/dL (8.5-10.1)
[2022-12-17 08:25] LABS: CREATININE 0.6 mg/dL (0.55-1.3)
[2022-12-17] MEDS: INSULIN SLIDING SCALE (NOVOLOG) 1 VIAL SQ SCH ×4 (08:26→22:10)
[2022-12-17 08:27] LABS: BILIRUBIN,TOTAL 0.5 mg/dL (0.2-1)
[2022-12-17] MEDS: ENOXAPARIN NA (PORCINE) 40 MG/0.4 ML DISP.SYRIN SQ SCH (09:25)
[2022-12-17] MEDS: DEXAMETHASONE SOD PHOSPHATE 10 MG/1 ML VIAL IVPUSH SCH (09:26)
[2022-12-17] MEDS: BUDESONIDE/FORMETEROL FUMARATE 160/4.5 mcg INHALER IH SCH ×2 (09:28→22:09)
[2022-12-17] MEDS: PANTOPRAZOLE SODIUM 40 MG VIAL IVPUSH SCH (09:28)
[2022-12-17] MEDS ORDERED: INSULIN (NOVOLOG) ASPART 100 UNITS/ML 10ML VIAL ONE ×3 (12:17→22:10)
[2022-12-17] MEDS ORDERED: REMDESIVIR 100 MG in SODIUM CHLORIDE 250 ML IVPB ONE (14:45)
[2022-12-18] MEDS: INSULIN SLIDING SCALE (NOVOLOG) 1 VIAL SQ SCH ×4 (06:45→22:57)
[2022-12-18] MEDS: DEXAMETHASONE SOD PHOSPHATE 10 MG/1 ML VIAL IVPUSH SCH (09:14)
[2022-12-18] MEDS: PANTOPRAZOLE SODIUM 40 MG VIAL IVPUSH SCH (09:15)
[2022-12-18] MEDS: ENOXAPARIN NA (PORCINE) 40 MG/0.4 ML DISP.SYRIN SQ SCH (09:15)
[2022-12-18] MEDS: BUDESONIDE/FORMETEROL FUMARATE 160/4.5 mcg INHALER IH SCH ×2 (09:22→22:59)
[2022-12-18] MEDS ORDERED: INSULIN (NOVOLOG) ASPART 100 UNITS/ML 10ML VIAL ONE ×2 (11:46→21:24)
[2022-12-18 14:28] VITALS: BMI 27.8
[2022-12-19] MEDS: INSULIN SLIDING SCALE (NOVOLOG) 1 VIAL SQ SCH ×3 (06:43→16:08)
[2022-12-19] MEDS: ENOXAPARIN NA (PORCINE) 40 MG/0.4 ML DISP.SYRIN SQ SCH (09:47)
[2022-12-19] MEDS: DEXAMETHASONE SOD PHOSPHATE 10 MG/1 ML VIAL IVPUSH SCH (09:47)
[2022-12-19] MEDS: PANTOPRAZOLE SODIUM 40 MG VIAL IVPUSH SCH (09:47)
[2022-12-19] MEDS: BUDESONIDE/FORMETEROL FUMARATE 160/4.5 mcg INHALER IH SCH (09:48)
[2022-12-19] MEDS ORDERED: INSULIN (NOVOLOG) ASPART 100 UNITS/ML 10ML VIAL ONE ×2 (12:18→16:06)
[2022-12-19 16:11] VITALS: BP 103/52; PULSE 64; TEMP 98.9
== END 2022-12-19 18:55 | DRG 871 ==
LOC: JER 12:57 → JERBED 17:41 → JICU 21:18 → J8W 12-14 14:06
PROVIDERS: ADMIT Internal Medicine Pulmonary Disease; ATTEND Family Medicine
PROC: XW033E5 Introduction of Remdesivir Anti-infective into Peripheral Vein, Percutaneous Approach, New Technology Group 5 (ICD-10-PCS; principal; 2022-12-12)
DX: A41.9 Sepsis, unspecified organism (principal); J96.01 Acute respiratory failure with hypoxia; U07.1 COVID-19; E87.20 Acidosis, unspecified; I24.8 Other forms of acute ischemic heart disease; I25.10 Atherosclerotic heart disease of native coronary artery without angina pectoris; E11.9 Type 2 diabetes mellitus without complications; E78.5 Hyperlipidemia, unspecified; F03.90 Unspecified dementia, unspecified severity, without behavioral disturbance, psychotic disturbance, mood disturbance, and anxiety; G20 Parkinson's disease; F31.9 Bipolar disorder, unspecified; D69.6 Thrombocytopenia, unspecified
CPT/HCPCS: 0241U-QW; 36415; 70450-TC; 71045-TC-FY; 74174-TC; 80048; 80053; 81003; 82308; 82550; 82553; 82728; 82803; 82962; 83605; 83735; 83880; 84100; 84484; 85025; 85027; 85610; 85651; 85730; 86140; 86850; 86900; 86901; 87040; 87086; 93005; 93010; 93306-TC; 94660; 99285-25; C9399; C9803-CS; J1100; J1644; Q9967; U0003; U0005

== ENCOUNTER 2023-11-05 20:30 | Inpatient (IN) | payer OTHER ==
[2023-11-05 22:31] LABS: BASO % 0.6 % (0-2.0); EOS % 0.2 % (0-4.5); HEMATOCRIT 42.8 % (35.4-49); HEMOGLOBIN 14.8 GM/dL (11.7-16.9); LYMPH % 9.6 % (8-40); MCH 31.4 pg (25.7-33.7); MCHC 34.5 g/dl (32.0-35.9); MEAN CELL VOLUME 91.1 fl (80-96); MEAN PLT VOLUME 9.8 fl (7.5-11.1); MONO % 6.5 % (3.8-10.2); NEUT % 83.1 % (42.8-82.8); PLATELET COUNT 172 10^3/uL (134-434); RDW 13.8 % (11.9-15.9); WHITE BLOOD COUNT 11.9 K/mm3 (4.0-10.0)
[2023-11-05 22:37] LABS: INR 1.1 (0.83-1.09); PROTHROMBIN TIME (PATIENT) 12.8 SEC (9.7-13.0)
[2023-11-05 22:39] LABS: ACTIVATED PTT 33.1 SECONDS (25.2-36.5)
[2023-11-05 22:53] LABS: ALBUMIN 3.5 g/dl (3.4-5.0); CALCIUM 9.9 mg/dL (8.5-10.1)
[2023-11-05 22:54] LABS: MAGNESIUM 2.2 mg/dL (1.8-2.4)
[2023-11-05 22:58] LABS: BILIRUBIN,TOTAL 0.7 mg/dL (0.2-1); TOT PROT 6.4 g/dl (6.4-8.2)
[2023-11-06] MEDS: SODIUM CHLORIDE 0.45% 1,000 ML IV SCH (00:45)
[2023-11-06 05:10] VITALS: BMI 27.0
[2023-11-06 05:12] LABS: PH,URINE 5.5 (5.0-8.0); URINE APPEARANCE CLEAR; URINE BILIRUBIN NEGATIVE (NEGATIVE); URINE COLOR YELLOW; URINE GLUCOSE (UA) 2+ (NEGATIVE); URINE KETONE 2+ (NEGATIVE); URINE LEUK ESTERASE NEGATIVE (NEGATIVE); URINE NITRITE NEGATIVE (NEGATIVE); URINE PROTEIN TRACE (NEGATIVE)
[2023-11-06 05:30] LABS: BASO % 0.3 % (0-2.0); EOS % 0.3 % (0-4.5); HEMATOCRIT 41.6 % (35.4-49); HEMOGLOBIN 14.1 GM/dL (11.7-16.9); LYMPH % 23.9 % (8-40); MCH 31.1 pg (25.7-33.7); MCHC 33.8 g/dl (32.0-35.9); MEAN PLT VOLUME 10.1 fl (7.5-11.1); MONO % 11.6 % (3.8-10.2); NEUT % 63.9 % (42.8-82.8); PLATELET COUNT 152 10^3/uL (134-434); RBC 4.52 M/mm3 (4.00-5.60); RDW 13.9 % (11.9-15.9); WHITE BLOOD COUNT 9.7 K/mm3 (4.0-10.0)
[2023-11-06 05:45] LABS: POTASSIUM 3.6 mmol/L (3.5-5.1)
[2023-11-06 05:47] LABS: BLOOD UREA NITROGEN 22.8 mg/dL (7-18); CALCIUM 9.3 mg/dL (8.5-10.1)
[2023-11-06 05:50] LABS: CREATININE 0.7 mg/dL (0.55-1.3); PHOSPHOROUS 3.2 mg/dL (2.5-4.9)
[2023-11-06] MEDS: DIVALPROEX NA *ER* EXTEND REL 500 MG TABLET.SA (FP) PO SCH (10:49)
[2023-11-06] MEDS: ASPIRIN COATED 81 MG TABLET.EC PO SCH (13:04)
[2023-11-06] MEDS: ARTIFICIAL TEARS OPHTHALMIC DROPS OU SCH (21:31)
[2023-11-06] MEDS: risperiDONE 0.5 MG TABLET PO SCH (21:31)
[2023-11-06] MEDS: ATORVASTATIN CA 20 MG TABLET (FP) PO SCH (21:31)
[2023-11-06] MEDS ORDERED: DIVALPROEX NA *ER* EXTEND REL 500 MG TABLET.SA (FP) PO SCH (22:00)
[2023-11-07 14:37] VITALS: RESP 18
[2023-11-08] MEDS: amLODIPine BESYLATE 5 MG TABLET (FP) PO SCH (09:46)
[2023-11-08 18:09] VITALS: BP 146/85; PULSE 73; TEMP 99
== END 2023-11-08 18:21 | DRG 392 ==
LOC: JER 20:30 → JERBED 11-06 → J4S 11-06 03:23 → OBSVTOIN 11-06 09:47
PROVIDERS: ADMIT Internal Medicine; ATTEND Family Medicine
DX: R19.7 Diarrhea, unspecified (principal); F31.89 Other bipolar disorder; E44.1 Mild protein-calorie malnutrition; I25.10 Atherosclerotic heart disease of native coronary artery without angina pectoris; E86.0 Dehydration; E78.5 Hyperlipidemia, unspecified; E11.319 Type 2 diabetes mellitus with unspecified diabetic retinopathy without macular edema; G20.A1 Parkinson's disease without dyskinesia, without mention of fluctuations; F03.90 Unspecified dementia, unspecified severity, without behavioral disturbance, psychotic disturbance, mood disturbance, and anxiety; H04.129 Dry eye syndrome of unspecified lacrimal gland; Z68.27 Body mass index [BMI] 27.0-27.9, adult; R94.5 Abnormal results of liver function studies; R53.1 Weakness; R77.8 Other specified abnormalities of plasma proteins
CPT/HCPCS: 0241U-QW; 36415; 70450-TC; 71045-TC-FY; 80048; 80053; 81003; 82962; 83735; 84100; 84484; 85025; 85610; 85730; 93005; 93010; 93306-TC; 99285-25; G0378

== ENCOUNTER 2023-11-08 22:05 | Observation (INO) | payer OTHER ==
[2023-11-08 23:18] LABS: BASO % 0.5 % (0-2.0); EOS % 0.9 % (0-4.5); HEMATOCRIT 41.3 % (35.4-49); HEMOGLOBIN 14.3 GM/dL (11.7-16.9); LYMPH % 25.6 % (8-40); MCH 31.8 pg (25.7-33.7); MCHC 34.5 g/dl (32.0-35.9); MEAN CELL VOLUME 92.2 fl (80-96); MEAN PLT VOLUME 9.4 fl (7.5-11.1); MONO % 13.1 % (3.8-10.2); NEUT % 59.9 % (42.8-82.8); PLATELET COUNT 158 10^3/uL (134-434); RBC 4.48 M/mm3 (4.00-5.60); RDW 13.8 % (11.9-15.9); WHITE BLOOD COUNT 9.1 K/mm3 (4.0-10.0)
[2023-11-08 23:24] LABS: INR 1.12 (0.83-1.09)
[2023-11-08 23:27] LABS: ACTIVATED PTT 35.4 SECONDS (25.2-36.5)
[2023-11-08 23:37] LABS: CHLORIDE 108 mmol/L (98-107); SODIUM 142 mmol/L (136-145)
[2023-11-08 23:39] LABS: ALBUMIN 3.3 g/dl (3.4-5.0); ANION GAP 8 mmol/L (4-13); BLOOD UREA NITROGEN 12.6 mg/dL (7-18); CO2 26 mmol/L (21-32); GLUCOSE,RANDOM 178 mg/dL (74-106)
[2023-11-08 23:40] LABS: MAGNESIUM 2.1 mg/dL (1.8-2.4)
[2023-11-08 23:43] LABS: CREATININE 0.8 mg/dL (0.55-1.3); SGOT/AST 37 U/L (15-37); SGPT/ALT 15 U/L (13-61)
[2023-11-08 23:45] LABS: BILIRUBIN,TOTAL 0.8 mg/dL (0.2-1); TOT PROT 5.9 g/dl (6.4-8.2)
[2023-11-08 23:46] LABS: ALK PHOS 72 U/L (45-117)
[2023-11-09 06:22] VITALS: BMI 26.2
[2023-11-09] MEDS: INSULIN ASPART SLIDING SCALE (NOVOLOG) 1 VIAL SQ SCH (06:29)
[2023-11-09] MEDS: amLODIPine BESYLATE 5 MG TABLET (FP) PO SCH (15:08)
[2023-11-09] MEDS: DIVALPROEX NA *ER* EXTEND REL 500 MG TABLET.SA (FP) PO SCH ×2 (15:09→22:23)
[2023-11-09] MEDS: ARTIFICIAL TEARS OPHTHALMIC DROPS OU SCH (15:09)
[2023-11-09 19:52] LABS: PH,URINE 6.5 (5.0-8.0); URINE APPEARANCE CLEAR; URINE BILIRUBIN NEGATIVE (NEGATIVE); URINE COLOR DK YELLOW; URINE GLUCOSE (UA) 3+ (NEGATIVE); URINE KETONE TRACE (NEGATIVE); URINE LEUK ESTERASE NEGATIVE (NEGATIVE); URINE NITRITE NEGATIVE (NEGATIVE); URINE PROTEIN NEGATIVE (NEGATIVE)
[2023-11-09 20:57] VITALS: RESP 18
[2023-11-09] MEDS: risperiDONE 0.5 MG TABLET PO SCH (22:23)
[2023-11-10 18:40] VITALS: BP 127/69; PULSE 74; TEMP 98.4
== END 2023-11-10 20:03 ==
LOC: JER 22:05 → JERBED 11-09 01:33 → J4W 11-09 05:54
PROVIDERS: ADMIT Student in an Organized Health Care Education/Training Program; ATTEND Family Medicine
PROC: 3E013VG Introduction of Insulin into Subcutaneous Tissue, Percutaneous Approach (ICD-10-PCS; principal; 2023-11-09)
DX: R55 Syncope and collapse (principal); I25.10 Atherosclerotic heart disease of native coronary artery without angina pectoris; R79.89 Other specified abnormal findings of blood chemistry; R53.1 Weakness; F31.9 Bipolar disorder, unspecified; E11.40 Type 2 diabetes mellitus with diabetic neuropathy, unspecified; W18.39XA Other fall on same level, initial encounter; Y93.89 Activity, other specified; Y92.009 Unspecified place in unspecified non-institutional (private) residence as the place of occurrence of the external cause; I11.9 Hypertensive heart disease without heart failure; E78.5 Hyperlipidemia, unspecified; G20.A1 Parkinson's disease without dyskinesia, without mention of fluctuations; F03.90 Unspecified dementia, unspecified severity, without behavioral disturbance, psychotic disturbance, mood disturbance, and anxiety; R77.8 Other specified abnormalities of plasma proteins; R19.7 Diarrhea, unspecified; Z86.39 Personal history of other endocrine, nutritional and metabolic disease
CPT/HCPCS: 36415; 70450-TC; 71045-TC-FY; 72125-TC; 80053; 81003; 82550; 82553; 82962; 83735; 84484; 85025; 85610; 85730; 86850; 86900; 86901; 87086; 93005; 93010; 96372; 97116-GP; 97162-GP; 99285-25; G0378

== ENCOUNTER 2024-07-24 17:31 | Inpatient (IN) | payer OTHER ==
[2024-07-24 18:34] LABS: BASO % 0.4 % (0-2.0); EOS % 0.2 % (0-4.5); HEMATOCRIT 45.7 % (35.4-49); HEMOGLOBIN 15.6 GM/dL (11.7-16.9); LYMPH % 15.7 % (8-40); MCH 31.7 pg (25.7-33.7); MCHC 34.2 g/dl (32.0-35.9); MEAN CELL VOLUME 92.8 fl (80-96); MEAN PLT VOLUME 9.1 fl (7.5-11.1); MONO % 12.5 % (3.8-10.2); NEUT % 71.2 % (42.8-82.8); PLATELET COUNT 163 10^3/uL (134-434); RBC 4.92 M/mm3 (4.00-5.60); RDW 13.4 % (11.9-15.9); WHITE BLOOD COUNT 10.2 K/mm3 (4.0-10.0)
[2024-07-24 18:51] LABS: ACTIVATED PTT 41.6 SECONDS (25.2-36.5); INR 1.06 (0.83-1.09)
[2024-07-24 19:03] LABS: POTASSIUM 3.6 mmol/L (3.5-5.1)
[2024-07-24 19:05] LABS: BLOOD UREA NITROGEN 20.7 mg/dL (7-18); CALCIUM 9.7 mg/dL (8.5-10.1)
[2024-07-24 19:07] LABS: ALBUMIN 3.5 g/dl (3.4-5.0); CREATININE 0.8 mg/dL (0.55-1.3)
[2024-07-24 19:09] LABS: TOT PROT 6.4 g/dl (6.4-8.2)
[2024-07-24] MEDS ORDERED: ALBUTEROL SO4 2.5/IPRATROPIUM 0.5 INH SOL 3 ML VIAL.NEB. NEB ONE (21:11)
[2024-07-24] MEDS: ALBUTEROL SO4 2.5/IPRATROPIUM 0.5 INH SOL 3 ML VIAL.NEB. NEB SCH (21:15)
[2024-07-25] MEDS: CARBIDOPA/LEVODOPA 25/100 TABLET (FP) PO ONE (02:54)
[2024-07-25] MEDS: INSULIN ASPART SLIDING SCALE (NOVOLOG) 1 VIAL SQ SCH (06:22)
[2024-07-25 08:44] LABS: BASO % 0.2 % (0-2.0); EOS % 0.3 % (0-4.5); HEMOGLOBIN 14.9 GM/dL (11.7-16.9); LYMPH % 20.8 % (8-40); MCH 31.9 pg (25.7-33.7); MCHC 34.6 g/dl (32.0-35.9); MEAN PLT VOLUME 9.6 fl (7.5-11.1); MONO % 14.3 % (3.8-10.2); NEUT % 64.4 % (42.8-82.8); PLATELET COUNT 147 10^3/uL (134-434); RBC 4.67 M/mm3 (4.00-5.60); RDW 13.4 % (11.9-15.9); WHITE BLOOD COUNT 8.6 K/mm3 (4.0-10.0)
[2024-07-25] MEDS: ARTIFICIAL TEARS OPHTHALMIC DROPS OU SCH (09:37)
[2024-07-25] MEDS: amLODIPine BESYLATE 5 MG TABLET (FP) PO SCH (09:37)
[2024-07-25] MEDS: ASPIRIN COATED 81 MG TABLET.EC PO SCH (09:38)
[2024-07-25] MEDS: SENNOSIDES 8.6MG TABLET (FP) PO SCH (09:38)
[2024-07-25 10:37] LABS: CALCIUM 9.1 mg/dL (8.5-10.1); CREATININE 0.6 mg/dL (0.55-1.3); POTASSIUM 3.3 mmol/L (3.5-5.1)
[2024-07-25] MEDS: DIVALPROEX NA *ER* EXTEND REL 500 MG TABLET.SA (FP) PO SCH ×2 (10:52→23:04)
[2024-07-25] MEDS: POTASSIUM CHLORIDE TABS 20 MEQ TABLET.ER (FP) PO ONE (12:51)
[2024-07-25] MEDS: LACTATED RINGERS SOLUTION 1,000 ML/1,000 ML INFUS.BAG IV SCH (14:01)
[2024-07-25] MEDS: POTASSIUM CHLORIDE ORAL LIQUID 20 MEQ/15 ML PO ONE (14:01)
[2024-07-25 17:36] LABS: PH,URINE 5.5 (5.0-8.0); URINE APPEARANCE CLEAR; URINE BILIRUBIN NEGATIVE (NEGATIVE); URINE COLOR YELLOW; URINE GLUCOSE (UA) 3+ (NEGATIVE); URINE KETONE TRACE (NEGATIVE); URINE LEUK ESTERASE NEGATIVE (NEGATIVE); URINE NITRITE NEGATIVE (NEGATIVE); URINE PROTEIN TRACE (NEGATIVE)
[2024-07-25] MEDS: ATORVASTATIN CA 20 MG TABLET (FP) PO SCH (21:35)
[2024-07-25] MEDS: risperiDONE 0.5 MG TABLET PO SCH (21:35)
[2024-07-26 08:23] LABS: POTASSIUM 3.7 mmol/L (3.5-5.1)
[2024-07-26 08:35] LABS: BLOOD UREA NITROGEN 13.9 mg/dL (7-18)
[2024-07-26 08:37] LABS: CALCIUM 8.9 mg/dL (8.5-10.1)
[2024-07-26 08:38] LABS: CREATININE 0.6 mg/dL (0.55-1.3)
[2024-07-27] MEDS: METOPROLOL TARTRATE 5 MG/5 ML VIAL IVPUSH ONE ×3 (01:11→05:08)
[2024-07-27 07:13] LABS: ARTERIAL BLD GAS O2 SATURATION 98.8 % (95-98); ARTERIAL BLOOD GAS BASE EXCESS 2.8 mmol/L (-2-2); ARTERIAL BLOOD GAS PO2 131.4 mmHg (80-100); ARTERIAL BLOOD GAS pH 7.485 (7.350-7.450)
[2024-07-27 07:16] LABS: ALLENS TEST POSITIVE
[2024-07-27 07:28] LABS: POTASSIUM 3.9 mmol/L (3.5-5.1)
[2024-07-27] MEDS ORDERED: levETIRAcetam 500 MG/5 ML INJECTION VIAL IVPB ONE (07:30)
[2024-07-27 07:34] LABS: BLOOD UREA NITROGEN 14.3 mg/dL (7-18); CALCIUM 9.1 mg/dL (8.5-10.1)
[2024-07-27 07:35] LABS: MAGNESIUM 1.9 mg/dL (1.8-2.4)
[2024-07-27] MEDS: levETIRAcetam 500 MG/5 ML INJECTION VIAL IVPB ONE ×2 (07:37→09:19)
[2024-07-27 07:38] LABS: CREATININE 0.7 mg/dL (0.55-1.3); PHOSPHOROUS 2.9 mg/dL (2.5-4.9)
[2024-07-27 08:00] LABS: BASO % 0.4 % (0-2.0); EOS % 1.2 % (0-4.5); HEMATOCRIT 41.3 % (35.4-49); HEMOGLOBIN 14.2 GM/dL (11.7-16.9); MCH 31.5 pg (25.7-33.7); MCHC 34.3 g/dl (32.0-35.9); MEAN CELL VOLUME 91.9 fl (80-96); MEAN PLT VOLUME 9.8 fl (7.5-11.1); MONO % 12.3 % (3.8-10.2); NEUT % 68.1 % (42.8-82.8); PLATELET COUNT 172 10^3/uL (134-434); RDW 13.2 % (11.9-15.9)
[2024-07-27] MEDS: METOPROLOL TARTRATE 50 MG TABLET (FP) PO SCH (11:15)
[2024-07-27] MEDS: METOPROLOL TARTRATE 5 MG/5 ML VIAL IVPUSH PRN (11:28)
[2024-07-27] MEDS: SODIUM CHLORIDE 1,000 ML IV SCH (17:07)
[2024-07-27] MEDS ORDERED: levETIRAcetam 500 MG/5 ML INJECTION VIAL IVPB SCH (22:00)
[2024-07-27] MEDS: levETIRAcetam 500 MG/5 ML INJECTION VIAL IVPB SCH (22:02)
[2024-07-28] MEDS: APIXABAN 5 MG TABLET PO SCH (14:57)
[2024-07-28 19:11] LABS: BASO % 0.3 % (0-2.0); EOS % 0.3 % (0-4.5); HEMATOCRIT 38.9 % (35.4-49); HEMOGLOBIN 13.2 GM/dL (11.7-16.9); LYMPH % 15.4 % (8-40); MCH 31.5 pg (25.7-33.7); MEAN CELL VOLUME 92.7 fl (80-96); MEAN PLT VOLUME 8.8 fl (7.5-11.1); PLATELET COUNT 178 10^3/uL (134-434); RDW 13.3 % (11.9-15.9); WHITE BLOOD COUNT 9.8 K/mm3 (4.0-10.0)
[2024-07-29] MEDS: ACETAMINOPHEN 1000 MG/100 ML BAG IVPB PRN (01:02)
[2024-07-29 12:35] LABS: POTASSIUM 3.9 mmol/L (3.5-5.1)
[2024-07-29 12:38] LABS: BLOOD UREA NITROGEN 19.1 mg/dL (7-18)
[2024-07-29 12:41] LABS: ALBUMIN 2.8 g/dl (3.4-5.0); CREATININE 0.8 mg/dL (0.55-1.3)
[2024-07-29 12:42] LABS: BILIRUBIN,TOTAL 0.9 mg/dL (0.2-1); TOT PROT 5.6 g/dl (6.4-8.2)
[2024-07-29 21:17] LABS: EPI CELLS 5 /uL (0-25.1); HYALINE CASTS 0 /uL (0-3.1); URINE APPEARANCE CLEAR; URINE BACTERIA >9,000 /uL (0-1359); URINE BILIRUBIN NEGATIVE (NEGATIVE); URINE COLOR YELLOW; URINE GLUCOSE (UA) 3+ (NEGATIVE); URINE KETONE 1+ (NEGATIVE); URINE LEUK ESTERASE NEGATIVE (NEGATIVE); URINE NITRITE POSITIVE (NEGATIVE); URINE PROTEIN TRACE (NEGATIVE); URINE RBC 15 /uL (0-23.9); URINE WBC 48 /uL (0-25.8)
[2024-07-30] MEDS: FUROSEMIDE 40 MG/4 ML INJECTABLE VIAL IVPUSH ONE (10:51)
[2024-07-30] MEDS: levETIRAcetam 500 MG TABLET (FP) PO SCH (10:51)
[2024-07-30] MEDS: DIVALPROEX NA *ER* EXTEND REL 500 MG TABLET.SA (FP) PO SCH (10:52)
[2024-07-30] MEDS ORDERED: FAMOTIDINE 20 MG/50 ML IVPB 20 MG/50 ML MG IVPB ONE (22:05)
[2024-07-31 08:16] VITALS: BMI 28.4
[2024-07-31] MEDS: levETIRAcetam 500 MG/5 ML INJECTION VIAL IVPB ONE (21:08)
[2024-07-31] MEDS: levETIRAcetam 500 MG TABLET (FP) PO ONE (22:46)
[2024-08-01] MEDS ORDERED: METOPROLOL TARTRATE 5 MG/5 ML VIAL ONE (05:17)
[2024-08-01] MEDS: METOPROLOL TARTRATE 5 MG/5 ML VIAL IVPUSH ONE (05:30)
[2024-08-01] MEDS: DIGOXIN 0.5 MG/2 ML AMPUL IVPUSH ONE (05:53)
[2024-08-01] MEDS ORDERED: METOPROLOL TARTRATE 5 MG/5 ML VIAL IVPUSH PRN (07:02)
[2024-08-01] MEDS ORDERED: levETIRAcetam 500 MG TABLET (FP) PO SCH (07:14)
[2024-08-01 08:43] LABS: BASO % 0.3 % (0-2.0); EOS % 0.4 % (0-4.5); HEMATOCRIT 40.7 % (35.4-49); HEMOGLOBIN 14.1 GM/dL (11.7-16.9); LYMPH % 13.6 % (8-40); MCH 31.5 pg (25.7-33.7); MCHC 34.7 g/dl (32.0-35.9); MEAN CELL VOLUME 90.7 fl (80-96); MEAN PLT VOLUME 8.8 fl (7.5-11.1); MONO % 12.5 % (3.8-10.2); NEUT % 73.2 % (42.8-82.8); PLATELET COUNT 239 10^3/uL (134-434); RBC 4.49 M/mm3 (4.00-5.60); WHITE BLOOD COUNT 8.6 K/mm3 (4.0-10.0)
[2024-08-01 09:08] LABS: POTASSIUM 3.4 mmol/L (3.5-5.1)
[2024-08-01 09:10] LABS: CALCIUM 9.2 mg/dL (8.5-10.1)
[2024-08-01 09:11] LABS: ALBUMIN 2.6 g/dl (3.4-5.0); BLOOD UREA NITROGEN 19.2 mg/dL (7-18)
[2024-08-01 09:14] LABS: CREATININE 0.6 mg/dL (0.55-1.3)
[2024-08-01 09:15] LABS: BILIRUBIN,TOTAL 0.8 mg/dL (0.2-1); TOT PROT 5.7 g/dl (6.4-8.2)
[2024-08-01] MEDS: PIPERACILLIN/TAZOB 3.375 GM 3.375 GM in DEXTROSE 5%-WATER - 50 ML IVPB SCH (09:41)
[2024-08-01] MEDS: SODIUM CHLORIDE 0.9%/KCL 20 MEQ/1,000 ML INFUS.BAG IV SCH (10:28)
[2024-08-01] MEDS: METOPROLOL TARTRATE 50 MG TABLET (FP) PO SCH ×2 (10:35→21:36)
[2024-08-01] MEDS: KCL 10 MEQ IVPB 10 MEQ/100 ML INFUS.BAG IVPB SCH (10:36)
[2024-08-01] MEDS: AMIODARONE HCL 200 MG TABLET PO SCH (15:01)
[2024-08-02] MEDS: guaiFENesin 600 MG TABLET.ER (FP) PO SCH (13:18)
[2024-08-02 17:08] LABS: EPI CELLS 2 /uL (0-25.1); HYALINE CASTS 13 /uL (0-3.1); URINE APPEARANCE CLEAR; URINE BACTERIA 4377 /uL (0-1359); URINE BILIRUBIN NEGATIVE (NEGATIVE); URINE COLOR DK YELLOW; URINE GLUCOSE (UA) 2+ (NEGATIVE); URINE KETONE 1+ (NEGATIVE); URINE LEUK ESTERASE 1+ (NEGATIVE); URINE NITRITE NEGATIVE (NEGATIVE); URINE PROTEIN 1+ (NEGATIVE); URINE RBC 15 /uL (0-23.9); URINE UROBILINOGEN 4.0 E.U/dl mg/dL (0.2-1.0); URINE WBC 313 /uL (0-25.8)
[2024-08-02 18:59] LABS: YEAST MANY (NEGATIVE)
[2024-08-03 12:06] LABS: HEMATOCRIT 39.5 % (35.4-49); HEMOGLOBIN 13.4 GM/dL (11.7-16.9); MCH 30.9 pg (25.7-33.7); MCHC 33.8 g/dl (32.0-35.9); MEAN CELL VOLUME 91.3 fl (80-96); MEAN PLT VOLUME 9.1 fl (7.5-11.1); PLATELET COUNT 249 10^3/uL (134-434); RBC 4.33 M/mm3 (4.00-5.60); WHITE BLOOD COUNT 8.7 K/mm3 (4.0-10.0)
[2024-08-03 12:34] LABS: ANISOCYTOSIS 0; MACROCYTOSIS 0
[2024-08-03 12:43] LABS: POTASSIUM 3.4 mmol/L (3.5-5.1)
[2024-08-03 12:47] LABS: ALBUMIN 2.4 g/dl (3.4-5.0); BLOOD UREA NITROGEN 21.6 mg/dL (7-18); CALCIUM 9.3 mg/dL (8.5-10.1)
[2024-08-03 12:51] LABS: CREATININE 0.7 mg/dL (0.55-1.3)
[2024-08-03 12:53] LABS: BILIRUBIN,TOTAL 0.6 mg/dL (0.2-1); TOT PROT 5.4 g/dl (6.4-8.2)
[2024-08-03] MEDS: POTASSIUM CHLORIDE ORAL LIQUID 20 MEQ/15 ML PO ONE (14:39)
[2024-08-03] MEDS: levETIRAcetam 500 MG TABLET (FP) PO SCH (22:13)
[2024-08-03] MEDS: BENZONATATE 200 MG CAPSULE PO PRN (22:16)
[2024-08-04 05:06] LABS: URINE APPEARANCE CLEAR; URINE BILIRUBIN NEGATIVE (NEGATIVE); URINE COLOR DK YELLOW; URINE GLUCOSE (UA) 2+ (NEGATIVE); URINE KETONE 1+ (NEGATIVE); URINE LEUK ESTERASE NEGATIVE (NEGATIVE); URINE NITRITE NEGATIVE (NEGATIVE); URINE PROTEIN NEGATIVE (NEGATIVE); URINE UROBILINOGEN 4.0 E.U/dl mg/dL (0.2-1.0)
[2024-08-04 08:59] LABS: POTASSIUM 3.8 mmol/L (3.5-5.1)
[2024-08-04 09:03] LABS: ALBUMIN 2.5 g/dl (3.4-5.0); CALCIUM 9.3 mg/dL (8.5-10.1)
[2024-08-04 09:04] LABS: MAGNESIUM 2.1 mg/dL (1.8-2.4)
[2024-08-04 09:06] LABS: CREATININE 0.6 mg/dL (0.55-1.3)
[2024-08-04 09:07] LABS: BILIRUBIN,TOTAL 0.6 mg/dL (0.2-1); TOT PROT 5.4 g/dl (6.4-8.2)
[2024-08-04] MEDS: DIVALPROEX NA *ER* EXTEND REL 500 MG TABLET.SA (FP) PO SCH (11:23)
[2024-08-04] MEDS: levETIRAcetam 500 MG/5 ML INJECTION VIAL IVPB ONE (18:05)
[2024-08-04] MEDS: levETIRAcetam 500 MG TABLET (FP) PO SCH (23:33)
[2024-08-05] MEDS: MULTIVITAMINS (DAILY MVI) TABLET (FP) PO SCH (12:29)
[2024-08-05] MEDS: AMINO ACIDS/PROTEIN HYDROLYS 30 ML LIQUID.PKT PO SCH (12:29)
[2024-08-05] MEDS: ASCORBIC ACID 500 MG TABLET (FP) PO SCH (12:29)
[2024-08-05] MEDS: ZINC SULFATE 220 MG CAPSULE (FP) PO SCH (12:30)
[2024-08-05] MEDS: PIPERACILLIN/TAZOB 3.375 GM 3.375 GM in DEXTROSE 5%-WATER - 50 ML IVPB SCH (14:01)
[2024-08-06 15:01] VITALS: RESP 18
[2024-08-06 19:06] VITALS: BP 138/68; PULSE 62; TEMP 98.4
== END 2024-08-06 19:19 | DRG 56 ==
LOC: JER 17:31 → JERBED 21:32 → J4W 07-25 01:02 → OBSVTOIN 07-26 12:51
PROVIDERS: ADMIT Internal Medicine; ATTEND Family Medicine
DX: G31.83 Neurocognitive disorder with Lewy bodies (principal); J18.9 Pneumonia, unspecified organism; I48.92 Unspecified atrial flutter; R47.01 Aphasia; R29.6 Repeated falls; G20.A1 Parkinson's disease without dyskinesia, without mention of fluctuations; E11.9 Type 2 diabetes mellitus without complications; E78.5 Hyperlipidemia, unspecified; F31.9 Bipolar disorder, unspecified; I25.10 Atherosclerotic heart disease of native coronary artery without angina pectoris; E86.0 Dehydration; E87.6 Hypokalemia; F02.C0 Dementia in other diseases classified elsewhere, severe, without behavioral disturbance, psychotic disturbance, mood disturbance, and anxiety; R55 Syncope and collapse; R50.9 Fever, unspecified; R56.9 Unspecified convulsions; I44.1 Atrioventricular block, second degree; I50.9 Heart failure, unspecified; I48.0 Paroxysmal atrial fibrillation; G93.89 Other specified disorders of brain; W18.30XA Fall on same level, unspecified, initial encounter; Y92.090 Kitchen in other non-institutional residence as the place of occurrence of the external cause; Y99.9 Unspecified external cause status
CPT/HCPCS: 0241U-QW; 36415; 36600; 70450-TC; 71045-TC-FY; 72125-TC; 72170-TC-FY; 80048; 80053; 80164; 80177; 81003; 82550; 82803; 82962; 83605; 83735; 84100; 84443; 84484; 85025; 85610; 85730; 87040; 87077; 87086; 87186; 93005; 93010; 93306-TC; 93880-TC; 93971; 95816; 97116-GP; 97161-GP; 99285-25; G0378; J0131

== ENCOUNTER 2024-12-24 10:37 | Inpatient (IN) | payer OTHER ==
[2024-12-24 11:31] LABS: VENOUS BASE EXCESS 1.9 mmol/L (-2-2); VENOUS O2 SATURATION 95.5 % (70-80); VENOUS PCO2 34.2 mmHg (38-52); VENOUS PH 7.481 (7.310-7.410)
[2024-12-24 11:43] LABS: MEAN CELL VOLUME 94.6 fl (79.0-92.2)
[2024-12-24 11:45] LABS: ABSOLUTE IMMATURE GRANULOCYTES 0.02 x10^3/uL (0.0-0.031); BASOPHILS # 0.01 x10^3/uL (0.01-0.08); HEMATOCRIT 38.5 % (40.1-51.0); HEMOGLOBIN 12.6 g/dL (13.7-17.5); MCHC 32.7 g/dl (32.3-36.5); MEAN PLT VOLUME 11.3 fl (9.4-12.4); MONOCYTE # 0.79 x10^3/uL (0.30-0.82); MONOCYTE % 16.6 % (5.3-12.2); PLATELET COUNT 107 x10^3/uL (163-337); RDW 13.2 % (12.2-16.6)
[2024-12-24 11:46] LABS: EPI CELLS 5 /uL (0-25.1); HYALINE CASTS 0 /uL (0-3.1); PH,URINE 6.5 (5.0-8.0); URINE APPEARANCE CLEAR; URINE BACTERIA 6 /uL (0-1359); URINE BILIRUBIN NEGATIVE (NEGATIVE); URINE COLOR DK YELLOW; URINE GLUCOSE (UA) 2+ (NEGATIVE); URINE KETONE 1+ (NEGATIVE); URINE LEUK ESTERASE NEGATIVE (NEGATIVE); URINE NITRITE NEGATIVE (NEGATIVE); URINE PROTEIN 1+ (NEGATIVE); URINE RBC 41 /uL (0-23.9); URINE WBC 5 /uL (0-25.8)
[2024-12-24 11:52] LABS: INR 1.37 (0.83-1.09); PROTHROMBIN TIME (PATIENT) 14.9 SEC (9.7-13.0)
[2024-12-24] MEDS ORDERED: VANCOMYCIN 1 GM PREMIX (F) 1 GM/200 ML BAG ONE (11:52)
[2024-12-24] MEDS ORDERED: CEFEPIME HCL/D5W 2 GM/50 ML BAG IVPB ONE (11:52)
[2024-12-24 11:54] LABS: ACTIVATED PTT 39.2 SECONDS (25.2-36.5)
[2024-12-24] MEDS: SODIUM CHLORIDE 0.9% 1000 ML INFUS.BAG IV STA (12:00)
[2024-12-24] MEDS: VANCOMYCIN 1,000 MG in DEXTROSE 5%-WATER - 500 ML IVPB ONE (12:01)
[2024-12-24] MEDS: CEFEPIME 2 GM in DEXTROSE 5%-WATER - 100 ML IVPB ONE (12:01)
[2024-12-24 12:04] LABS: CHLORIDE 110 mmol/L (98-107); POTASSIUM 3.1 mmol/L (3.5-5.1); SODIUM 144 mmol/L (136-145)
[2024-12-24 12:06] LABS: ALBUMIN 2.9 g/dl (3.4-5.0); ANION GAP 7 mmol/L (4-13); BLOOD UREA NITROGEN 12.6 mg/dL (7-18); CO2 26 mmol/L (21-32); GLUCOSE,RANDOM 148 mg/dL (74-106)
[2024-12-24 12:09] LABS: CREATININE 0.6 mg/dL (0.55-1.3); SGPT/ALT 8 U/L (13-61)
[2024-12-24 12:10] LABS: SGOT/AST 21 U/L (15-37)
[2024-12-24 12:11] LABS: BILIRUBIN,TOTAL 0.6 mg/dL (0.2-1); TOT PROT 5.5 g/dl (6.4-8.2)
[2024-12-24 12:12] LABS: ALK PHOS 61 U/L (45-117)
[2024-12-24] MEDS ORDERED: ACETAMINOPHEN INJECTION 100 ML ONE (13:45)
[2024-12-24] MEDS: ACETAMINOPHEN 1000 MG/100 ML BAG IVPB ONE (13:48)
[2024-12-24] MEDS ORDERED: PIPERACILLIN/TAZOB 3.375 GM 3.375 GM/50 ML BAG IVPB ONE (20:02)
[2024-12-24] MEDS: PIPERACILLIN/TAZOB 3.375 GM 3.375 GM in DEXTROSE 5%-WATER - 50 ML IVPB SCH (20:09)
[2024-12-24 20:26] LABS: ARTERIAL BLD GAS O2 SATURATION 97.1 % (95-98); ARTERIAL BLOOD GAS BASE EXCESS 1.5 mmol/L (-2-2); ARTERIAL BLOOD GAS PO2 86.5 mmHg (80-100); ARTERIAL BLOOD GAS pH 7.466 (7.350-7.450)
[2024-12-24 20:30] LABS: VENT MODE S/T; VENT RATE 12
[2024-12-24] MEDS: KCL 10 MEQ IVPB 10 MEQ/100 ML INFUS.BAG IVPB SCH (21:00)
[2024-12-24] MEDS ORDERED: KCL 10 MEQ IVPB 10 MEQ/100 ML INFUS.BAG IVPB ONE (21:08)
[2024-12-24] MEDS ORDERED: PANTOPRAZOLE 40 MG TABLET PO SCH (22:00)
[2024-12-24] MEDS: levETIRAcetam 500 MG/5 ML INJECTION VIAL IVPB SCH (23:16)
[2024-12-24] MEDS: PANTOPRAZOLE SODIUM 40 MG VIAL IVPUSH SCH (23:16)
[2024-12-24] MEDS: INSULIN ASPART SLIDING SCALE (NOVOLOG) 1 VIAL SQ SCH (23:17)
[2024-12-25 09:20] LABS: EOSINOPHIL % 0.4 % (0.8-7.0); EOSINOPHILS # 0.02 x10^3/uL (0.04-0.54); MEAN PLT VOLUME 11.6 fl (9.4-12.4); RDW 13.2 % (12.2-16.6)
[2024-12-25 09:21] LABS: ABSOLUTE IMMATURE GRANULOCYTES 0.04 x10^3/uL (0.0-0.031); BASOPHILS # 0.02 x10^3/uL (0.01-0.08); HEMATOCRIT 37.7 % (40.1-51.0); HEMOGLOBIN 12.1 g/dL (13.7-17.5); MCHC 32.1 g/dl (32.3-36.5); MONOCYTE # 0.62 x10^3/uL (0.30-0.82); MONOCYTE % 12.7 % (5.3-12.2); PLATELET COUNT 127 x10^3/uL (163-337)
[2024-12-25 09:50] LABS: POTASSIUM 3.5 mmol/L (3.5-5.1)
[2024-12-25 10:02] LABS: ALBUMIN 2.8 g/dl (3.4-5.0)
[2024-12-25 10:03] LABS: CALCIUM 8.9 mg/dL (8.5-10.1)
[2024-12-25 10:04] LABS: BILIRUBIN,TOTAL 0.8 mg/dL (0.2-1); MAGNESIUM 1.8 mg/dL (1.8-2.4)
[2024-12-25 10:06] LABS: CREATININE 0.5 mg/dL (0.55-1.3)
[2024-12-25 10:07] LABS: TOT PROT 5.3 g/dl (6.4-8.2)
[2024-12-25] MEDS: PIPERACILLIN/TAZOB 3.375 GM 3.375 GM in DEXTROSE 5%-WATER - 50 ML IVPB SCH (20:09)
[2024-12-25] MEDS: ATORVASTATIN CA 20 MG TABLET (FP) PO SCH (21:40)
[2024-12-25] MEDS: APIXABAN 5 MG TABLET PO SCH (21:40)
[2024-12-26] MEDS: PIPERACILLIN/TAZOB 3.375 GM 3.375 GM in DEXTROSE 5%-WATER - 50 ML IVPB SCH (03:01)
[2024-12-26 06:50] LABS: ABSOLUTE IMMATURE GRANULOCYTES 0.02 x10^3/uL (0.0-0.031)
[2024-12-26 06:52] LABS: BASOPHILS # 0.02 x10^3/uL (0.01-0.08); EOSINOPHIL % 1.3 % (0.8-7.0); EOSINOPHILS # 0.05 x10^3/uL (0.04-0.54); HEMATOCRIT 36.3 % (40.1-51.0); MCHC 33.1 g/dl (32.3-36.5); MEAN CELL VOLUME 94.3 fl (79.0-92.2); MONOCYTE # 0.46 x10^3/uL (0.30-0.82); MONOCYTE % 11.7 % (5.3-12.2); PLATELET COUNT 129 x10^3/uL (163-337); RDW 13.1 % (12.2-16.6)
[2024-12-26 06:58] LABS: POTASSIUM 3.2 mmol/L (3.5-5.1)
[2024-12-26 07:03] LABS: ALBUMIN 2.8 g/dl (3.4-5.0); CALCIUM 9.4 mg/dL (8.5-10.1)
[2024-12-26 07:06] LABS: CREATININE 0.5 mg/dL (0.55-1.3)
[2024-12-26 07:08] LABS: BILIRUBIN,TOTAL 0.8 mg/dL (0.2-1); TOT PROT 5.3 g/dl (6.4-8.2)
[2024-12-26 12:51] VITALS: BMI 23.6
[2024-12-26] MEDS: POTASSIUM CHLORIDE ORAL LIQUID 20 MEQ/15 ML PO SCH (21:13)
[2024-12-27 07:23] LABS: HEMATOCRIT 36.7 % (40.1-51.0); HEMOGLOBIN 12.1 g/dL (13.7-17.5); MEAN CELL VOLUME 93.9 fl (79.0-92.2); MEAN PLT VOLUME 10.4 fl (9.4-12.4); PLATELET COUNT 168 x10^3/uL (163-337)
[2024-12-27 07:39] LABS: POTASSIUM 3.3 mmol/L (3.5-5.1)
[2024-12-27 07:43] LABS: BLOOD UREA NITROGEN 9.5 mg/dL (7-18); CALCIUM 9.2 mg/dL (8.5-10.1); MAGNESIUM 1.9 mg/dL (1.8-2.4)
[2024-12-27 07:47] LABS: CREATININE 0.6 mg/dL (0.55-1.3)
[2024-12-27] MEDS: POTASSIUM CHLORIDE ORAL LIQUID 20 MEQ/15 ML PO ONE (15:13)
[2024-12-28 06:55] LABS: ABSOLUTE IMMATURE GRANULOCYTES 0.04 x10^3/uL (0.0-0.031); BASOPHILS # 0.04 x10^3/uL (0.01-0.08); EOSINOPHIL % 2.4 % (0.8-7.0); HEMATOCRIT 37.8 % (40.1-51.0); HEMOGLOBIN 12.5 g/dL (13.7-17.5); MCHC 33.1 g/dl (32.3-36.5); MEAN CELL VOLUME 92.2 fl (79.0-92.2); MEAN PLT VOLUME 10.1 fl (9.4-12.4); MONOCYTE # 0.47 x10^3/uL (0.30-0.82); MONOCYTE % 11.5 % (5.3-12.2); PLATELET COUNT 173 x10^3/uL (163-337); RDW 12.8 % (12.2-16.6)
[2024-12-28 07:09] LABS: POTASSIUM 3.3 mmol/L (3.5-5.1)
[2024-12-28 07:10] LABS: CALCIUM 9.3 mg/dL (8.5-10.1)
[2024-12-28 07:11] LABS: ALBUMIN 3.1 g/dl (3.4-5.0); BLOOD UREA NITROGEN 6.8 mg/dL (7-18)
[2024-12-28 07:14] LABS: CREATININE 0.6 mg/dL (0.55-1.3)
[2024-12-28 07:16] LABS: TOT PROT 5.8 g/dl (6.4-8.2)
[2024-12-28] MEDS: POTASSIUM CHLORIDE ORAL LIQUID 20 MEQ/15 ML PO ONE (16:57)
[2024-12-29 07:47] LABS: ABSOLUTE IMMATURE GRANULOCYTES 0.06 x10^3/uL (0.0-0.031); BASOPHILS # 0.04 x10^3/uL (0.01-0.08); EOSINOPHIL % 2.3 % (0.8-7.0); EOSINOPHILS # 0.12 x10^3/uL (0.04-0.54); HEMATOCRIT 38.5 % (40.1-51.0); HEMOGLOBIN 12.7 g/dL (13.7-17.5); MEAN CELL VOLUME 92.1 fl (79.0-92.2); MEAN PLT VOLUME 10.2 fl (9.4-12.4); MONOCYTE # 0.59 x10^3/uL (0.30-0.82); MONOCYTE % 11.1 % (5.3-12.2); PLATELET COUNT 220 x10^3/uL (163-337)
[2024-12-29 08:02] LABS: POTASSIUM 3.4 mmol/L (3.5-5.1)
[2024-12-29 08:16] LABS: CALCIUM 9.1 mg/dL (8.5-10.1)
[2024-12-29 08:17] LABS: ALBUMIN 3.2 g/dl (3.4-5.0); BLOOD UREA NITROGEN 8.4 mg/dL (7-18)
[2024-12-29 08:20] LABS: CREATININE 0.6 mg/dL (0.55-1.3)
[2024-12-29 08:21] LABS: BILIRUBIN,TOTAL 1.1 mg/dL (0.2-1); TOT PROT 6.3 g/dl (6.4-8.2)
[2024-12-29] MEDS: PANTOPRAZOLE 40 MG TABLET PO SCH (10:03)
[2024-12-29] MEDS: POTASSIUM CHLORIDE ORAL LIQUID 20 MEQ/15 ML PO ONE (10:03)
[2024-12-30 07:56] LABS: POTASSIUM 3.4 mmol/L (3.5-5.1)
[2024-12-30 07:57] LABS: BLOOD UREA NITROGEN 8.4 mg/dL (7-18); CALCIUM 9.6 mg/dL (8.5-10.1); MAGNESIUM 1.9 mg/dL (1.8-2.4)
[2024-12-30 08:01] LABS: CREATININE 0.6 mg/dL (0.55-1.3)
[2024-12-30 16:03] VITALS: BP 135/88; PULSE 91; RESP 16; TEMP 97.7
== END 2024-12-30 17:11 | DRG 193 ==
LOC: JER 10:37 → JERBED 13:23 → J4S 22:12
PROVIDERS: ADMIT Family Medicine; ATTEND Family Medicine
DX: J18.9 Pneumonia, unspecified organism (principal); G93.41 Metabolic encephalopathy; J96.01 Acute respiratory failure with hypoxia; J96.92 Respiratory failure, unspecified with hypercapnia; I48.92 Unspecified atrial flutter; I50.9 Heart failure, unspecified; I11.0 Hypertensive heart disease with heart failure; F31.9 Bipolar disorder, unspecified; E11.9 Type 2 diabetes mellitus without complications; F03.90 Unspecified dementia, unspecified severity, without behavioral disturbance, psychotic disturbance, mood disturbance, and anxiety; G20.A1 Parkinson's disease without dyskinesia, without mention of fluctuations; E78.5 Hyperlipidemia, unspecified; I25.10 Atherosclerotic heart disease of native coronary artery without angina pectoris
CPT/HCPCS: 0241U-QW; 36415; 36600; 70450-TC; 71045-TC-FY; 71250-TC; 74230-TC-FY; 80048; 80053; 81003; 82140; 82272; 82803; 82962; 83605; 83735; 83880; 84484; 85025; 85027; 85610; 85730; 86850; 86900; 86901; 87040; 87070; 87086; 87205; 87635; 87899; 92611-GN; 93005; 93010; 94660; 99285-25